=== PATIENT | female | born 1950 | race Caucasian/White ===

== ENCOUNTER → 2016-08-07 | Outpatient (CLI) | payer OTHER, MEDICARE ==
[~2016-08-07] MED LIST: ASCA500 PO; CALCTAB5 PO; CHOL100010 PO; LEVO50TA PO; MULT-506 PO; OMEG10007 PO
--- NOTE | 2016-08-08 13:25 | MAMMOGRAPHY REPORT ---
BILATERAL DIGITAL SCREENING MAMMOGRAM TOMOSYNTHESIS WITH CAD: 08/07/2016 CLINICAL HISTORY: Routine screening examination. TECHNIQUE: Breast tomosynthesis in addition to standard 2D mammography was performed. Current study was also evaluated with a Computer Aided Detection (CAD) system. COMPARISON: Comparison is made to exams dated: 08/02/2015 mammogram, 07/30/2014 mammogram, 07/11/2012 mammogram, 07/29/2013 mammogram, 06/23/2011 localization - [facility], and 9. BREAST COMPOSITION: The tissue of both breasts is heterogeneously dense, which may obscure small ma sses. FINDINGS: There is architectural distortion and associated surgical clips in the lower inner middle one third of the right breast, at the site of benign surgical excisional biopsy. There are stable grouped faint punctate microcalcifications in the approximate 3:00 right breast. Other benign coars e calcifications bilaterally. No new suspicious mass, architectural distortion or cluster of microc alcifications is seen. IMPRESSION: ACR BI-RADS CATEGORY 1: NEGATIVE There is no mammographic evidence of malignancy. A 1 year screening mammogram is recommended. The p atient will receive written notification of the results. Approximately 10% of breast cancers are not detected with mammography. A negative mammographic repor t should not delay biopsy if a clinically suggestive mass is present. Gail Baker M.D. ay/:08/07/2016 16:47:33 Physician Relations Manager: Felicity SHUKLA)([place]), [facility] letter sent: Normal 1/2 BI-RADS Code: ACR BI-RADS Category 1: Negative
== END | disposition home or self-care (01) ==
LOC: C.MAMM 14:47
PROVIDERS: ATTEND Obstetrics & Gynecology
DX: Z12.31 Encounter for screening mammogram for malignant neoplasm of breast (principal)

== ENCOUNTER → 2017-01-04 | Outpatient (CLI) | payer OTHER, MEDICARE | END | disposition home or self-care (01) | LOC: C.PAPS 12:28 | PROVIDERS: ATTEND Obstetrics & Gynecology | DX: Z12.4 Encounter for screening for malignant neoplasm of cervix (principal); Z11.51 Encounter for screening for human papillomavirus (HPV) ==

== ENCOUNTER → 2017-01-24 | Outpatient (CLI) | payer OTHER, MEDICARE | END | disposition home or self-care (01) | LOC: C.PATHSPEC 15:27 | PROVIDERS: ATTEND Obstetrics & Gynecology | DX: D06.9 Carcinoma in situ of cervix, unspecified (principal) ==

== ENCOUNTER → 2017-02-21 | Outpatient (CLI) | payer OTHER, MEDICARE ==
[2017-02-21 17:44] LABS: BASO % 0.1 %; BASO ABS # 0.01 K/uL (0-0.2); COMPLETE YES; EOS % 0.7 %; HEMATOCRIT 41.8 % (37-47); IG% 0.2 %; LYMPH % 27.5 %; LYMPH ABS # 2.96 K/uL (1.2-3.4); MEAN CELL VOLUME 87.3 fL (80-100); MEAN CORPUSCULAR HEMOGLOBIN 28.6 pg (25-34); MEAN CORPUSCULAR HGB CONC 32.8 g/dl (32-36); MEAN PLATELET VOLUME 10.1 fL (7.4-10.4); MONO % 7.3 %; NEUT % 64.2 %; PLATELET COUNT 313 K/uL (130-400); RED BLOOD COUNT 4.79 M/uL (4.2-5.4); WHITE BLOOD COUNT 10.78 K/uL (4.8-10.8)
== END | disposition home or self-care (01) ==
LOC: C.LAB1850 16:16
PROVIDERS: ATTEND Obstetrics & Gynecology
DX: Z01.818 Encounter for other preprocedural examination (principal)

== ENCOUNTER → 2017-03-22 | Day surgery (SDC) | payer OTHER, MEDICARE ==
[2017-02-20 12:34] VITALS: Ht 165.1 cm; Wt 79.5 kg
--- NOTE | 2017-02-23 15:35 | HISTORY & PHYSICAL EXAMINATION ---
DATE OF ADMISSION: 03/22/2017 ADMIT DIAGNOSES: 1. JUANITO 3. 2. Endometrial mass. HISTORY OF PRESENT ILLNESS: The patient is a 67-year-old postmenopausal female 3, para 3 who presented to me for her annual exam in December 2016. She was doing well. She was not having any bleeding. She had prolapse for which I fitted her with a pessary; however on bimanual exam there was nodularity in the left cul-de-sac which I suspected was stool but was not confirmed on rectovaginal exam. Given this, an ultrasound was performed. This revealed a normal size and shaped uterus. The endometrium was 5.4 mm and the microcystic area was seen. There was a small simple exophytic cyst in the right adnexa measuring 1.6 cm and 3 small simple cystic areas in the left adnexa, all less than 1.8 cm. Given this finding, I recommended that she have saline infusion sonography. This was performed revealing a solid ovoid echogenic mass in the posterior wall with a vascular stalk. I therefore recommended D&C hysteroscopy for this. In the interim the patient had her Pap smear which revealed a high grade lesion. She had previously had an ASCUS Pap in July 2016 as well as November 2015. HPV in 2013 was negative, October 2015 was positive. She underwent colposcopy in December 2015 revealing a low grade lesion at 5 o'clock and negative ECC. We decided to be conservative, but with his high grade Pap she went back to colposcopy, had 4 quadrant biopsies revealing high grade lesion at 2 o'clock as well as 7 o'clock and 11 o'clock. ECC was negative, so therefore we are proceeding with a top hat LEEP concurrently. We will follow up her ovaries in 3-4 months. 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 She does have a slight prolonged history of ASCUS Paps, was negative for HPV in 2013 and positive in 2015. ALLERGIES: PENICILLIN, BEE STINGS AND DUST. MEDICATIONS: Caltrate, levothyroxine, omega 3, vitamin C, vitamin D. PAST MEDICAL HISTORY: Include anxiety, cystocele, dyslipidemia, Judson's thyroiditis, hypothyroidism from Judson's thyroiditis, osteoporosis. PAST SURGICAL HISTORY: Includes breast biopsy, breast surgery reduction bilaterally, colonoscopy and laser ablation of the cervix. FAMILY HISTORY: Significant for her mother with breast and colon cancer as well as diabetes and hypertension. Father is with history of diabetes and heart disease, also family history of hypertension. SOCIAL HISTORY: The patient is . She is not currently sexually active. She denies tobacco or significant alcohol use. 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 PHYSICAL EXAMINATION: GENERAL: This is a well-developed, well-nourished white female in no acute distress. VITAL SIGNS: Her blood pressure is 136/92, height 5 feet 5 inches, weight 180.9 pounds. NECK: Supple without thyromegaly or lymphadenopathy. CHEST: Clear to auscultation bilaterally. CARDIOVASCULAR: Regular rate and rhythm without murmurs, gallops or rubs. BACK: Without costovertebral angle tenderness. ABDOMEN: Soft, nontender, nondistended, without appreciable masses. PELVIC EXAMINATION: There is normal external female genitalia. Normal Bartholin, urethra and Cutler glands. Vagina is atrophic, dry. There is a cystocele, which is a grade 4/4, uterine prolapse grade 4/4, but no abnormalities. The cervix prolapses to and slightly through the introitus. There is no significant discharge, no active vaginal bleeding. The cervix appears normal. On bimanual exam, the uterus is midline, mobile, smooth, small and nontender. There are no appreciable adnexal masses or tenderness. Bladder and urethra are nontender. ASSESSMENT: Jaz is a 67-year-old postmenopausal female with 2 unrelated issues. The first is a high grade Pap with JUANITO 3 on biopsies for which will proceed with a top hat LEEP. This second is an asymptomatic endometrial mass for which will proceed with D&C, hysteroscopy and polypectomy. The risks of the procedure were discussed with the patient including the risk of anesthesia, bleeding requiring transfusion, infection, poor wound healing, damage to surrounding structures including bowel, bladder, vessels, nerves and ureters with need for further surgery, hospitalization or intervention. We discussed the possibility of uterine perforation occurring in about 1% of procedures and that laparoscopy might be needed should we go with that. We discussed Pap would be back in 3-5 days and further intervention might be needed depending on Pap. We also discussed the risk of any surgery including heart attack, blood clot, stroke or . The patient understands the risks of the procedure. CONSENT: Consent was reviewed and signed and surgery is planned for 03/22/2017.
[~2017-03-22] VITALS: Ht 165.1 cm; Wt 79.5 kg
[~2017-03-22] MED LIST changes: +ATROPINE SULFATE 0.1 MG/ML 5ML SYR IV PRN; +DEXAMETHASONE SOD INJ 4 MG/ML VIAL ONE; +EpHEDrine SULFATE INJ 50 MG/ML AMP IV PRN; +FENTANYL CITRATE INJ 50 MCG/1 ML 2 ML VIAL IV PRN; +FENTANYL CITRATE INJ 50 MCG/1 ML 2 ML VIAL ONE; +FERRIC SUBSULFATE 8 GM VIAL ONE; +IBUPROFEN 600 MG TAB PO PRN; +IODINE SOLN STRONG 14 ML ONE; +KETOROLAC TROMETHAMINE 30 MG/ML VIAL IV. PRN; +LACTATED RINGER'S 1000ML 1,000 ML IV SCH; +LIDO 2%/EPINEPHRINE 1:100000 20 ML VIAL INFIL ONE; +LIDOCAINE HCL 2% 2 ML VIAL (20MG/ML) ONE; +MIDAZOLAM HCL 1 MG/ML 2ML VIAL ONE; +MoRPHine SULFATE 2 MG/ML CARP IV PRN; +MoRPHine SULFATE 4 MG/ML 1 ML CARP\\VIAL IV PRN; +ONDANSETRON INJ 2 MG/ML 2 ML VIAL IV PRN; +ONDANSETRON INJ 2 MG/ML 2 ML VIAL ONE; +OXYCODONE/ACETAMINOPHEN 5-325 TAB PO PRN; +PROPOFOL IV EMULSION 10 MG/ML 20 ML VIAL IV ONE; +SODIUM CHLORIDE 0.9% 1000ML 1,000 ML IV SCH
--- NOTE | 2017-03-22 11:35 | History & Physical Bridge - SC ---
H&P Re-Evaluation Bridge Note: I have examined the patient, reviewed the History & Physical and in the interval since the performance of the History & Physical I have noted the following changes of clinical significance: No changes noted
--- NOTE | 2017-03-22 13:06 | Discharge Instructions ---
Discharge Instructions Date of Service Mar 22, 2017. Visit Reason for Visit: High Grade Squamous Intraepithelial Lesion, Thick Discharge Discharge Diagnosis / Problem: 1. D&C/HSC/removal of polyp 2. leep Discharge Goals Goal(s): Specific goals Activity Recommendations Activity Limitations: per Instructions/Follow-up section Anesthesia . Post Anesthesia Instructions: If you have had General Anesthesia or IV Sedation: * Do not drive today. * Resume driving when surgeon permits. * Do not make important decisions or sign legal documents today. * Call surgeon for: 1. Temperature elevations greater than 101 degrees F. 2. Uncontrollable pain. 3. Excessive bleeding. 4. Persistent nausea and vomiting. 5. Medication intolerance (nausea, vomiting or rash). * For nausea and vomiting use only clear liquids such as: tea, soda, bouillon until nausea subsides, then gradually increase diet as tolerated. * If you have any concerns or questions, call your surgeon's office. If physician is unavailable and it is an emergency, call 911 or go to the nearest emergency room. . Instructions / Follow-Up Instructions / Follow-Up ACTIVITY RECOMMENDATIONS: * Avoid tampons, douching, hot tubs, pools, and intercourse until bleeding has stopped/2 weeks. * May shower as usual. * No strenuous activity for 24-48 hours. After 24-48 hours, you may do anything you feel like doing (driving and sports are okay). * Do not place pessary until cleared by physician. SPECIAL CARE INSTRUCTIONS: Special Diet: * Mild nausea may occur in the immediate post-operative period. * Take clear liquids such as tea, cola or bouillon until all nausea has subsided; you may then resume your normal diet. Special Care: * Light bleeding and vaginal spotting can last from a few days to 3-4 weeks. Call your doctor if bleeding becomes heavier than the heaviest part of your period. * Check your temperature twice a day for one week. If it goes above 100.4 degrees Fahrenheit (38.0 Celsius), notify your doctor. * Call your doctor's office for an appointment for 2 weeks after your surgery. FOLLOW-UP VISIT: Call your doctor's office for an appointment for 2 weeks after your surgery. Diet Recommendations Recommended Home Diet: no limitations, resume previous diet Procedures Procedures Performed: Dilatation And Curettage, Hysteroscopy, Polypectomy With Myosure, Loop Electorsurgical Excision Procedure Pending Studies Studies pending at discharge: no Medical Emergencies . Who to Call and When: Medical Emergencies: If at any time you feel your situation is an emergency, please call 911 immediately. . 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 . "Provider Documentation" section prepared by Letty Pandya. .
--- NOTE | 2017-03-22 13:09 | [facility] Post Operative Brief Note ---
Immediate Operative Summary Operative Date Mar 22, 2017. Pre-Operative Diagnosis High Grade Squamous Intraepithelial Lesion thickened endometrium and endometrial mass Post-Operative Diagnosis Same Procedure(s) Performed Dilatation And Curettage, Hysteroscopy, Polypectomy With Myosure, Loop Electorsurgical Excision Procedure Surgeon Dr. Pandya Intermediate Teacher Surgeon(s) None Estimated Blood Loss 5 ml Findings nl appearing uterine cavity with small polyp on post wall, thin em, nl appearing cx with lugols. Fluids (cc crystalloids) 850cc/ 20 cc hsc deficit Specimens A.) Endometrial Curettings B.) Endometrial Mass C.) Ectocervix D.) Endocervix E.) Endocervical Curettings F.) Anterior Lip Erosive Area Drains none Anesthesia lma Complication(s) None Disposition Recovery Room / PACU
[2017-03-22 14:12] VITALS: TEMP 36.6
--- NOTE | 2017-03-22 14:18 | OPERATIVE REPORT ---
DATE OF OPERATION: 03/22/2017 PREOPERATIVE DIAGNOSES: 1. Thickened endometrial mass. 2. High grade squamous epithelial lesion. DISCHARGE DIAGNOSIS: Same. PROCEDURES: 1. D&C, hysteroscopy with removal of endometrial mass fusion MyoSure. 2. Top hat LEEP. SURGEON: Dr. Pandya. ANESTHESIA: General per laryngeal mask. ESTIMATED BLOOD LOSS: 5 mL. FLUIDS: 850 mL of IV fluids with a 20 mL hysteroscopic deficit. INDICATIONS: Jaz is a 67-year-old postmenopausal female with a long history of minimally abnormal Pap smears, recently had a high grade Pap smear with JUANITO 2-3 on biopsy. Additionally, she had an ultrasound showing a thickened endometrium and an SIS for questionable mass. FINDINGS: Uterus sounded to 6 cm. An endometrial mass was noted on the posterior wall of the cervix. The endometrium was otherwise thin. The cervical os appeared normal and the external cervix appeared normal as well. SPECIMENS: 1. Endometrial curettings. 2. Endometrial mass. 3. Ectocervix. 4. Endocervix. 5. Endocervical curetting. 6. Erosive Nika anterior lip. COMPLICATIONS: None. DRAINS: None. DISPOSITION: To recovery room in stable condition. PROCEDURE: The patient was taken to the operating room where she was identified verbally and by bracelet. She was placed in dorsal supine position where general anesthesia was induced without difficulty. She was then placed in dorsal lithotomy position in candy-cane stirrups and prepped and draped in normal sterile fashion. Timeout was held identifying correct patient, procedure and positioning. The bladder was drained of urine and exam under anesthesia revealed a large cystocele and uterine prolapse to the introitus. The uterus was small retroverted and mobile. There were no appreciable adnexal masses, although there was some nodularity in the posterior cul-de-sac, most likely consistent with stool. A weighted speculum was placed in the posterior vagina. The anterior lip of the cervix was grasped with a single tooth tenaculum. Uterus sounded to 6-7 cm, dilated to a #23 Hegar dilator introducing the MyoSure hysteroscope revealed the above-noted polyp which was then removed using the MyoSure. Curettage was then performed in 365 degrees and that part of the procedure was terminated. Attention was then turned to the LEEP procedure. A coated speculum was placed in the vagina. Lugol solution was placed on the cervix. An ectocervical specimen was obtained, then an endocervical specimen, then an ECC above the endocervical specimen and there was an erosive area on the anterior lip of the cervix which was most likely secondary to manipulation of the cervix, but this area was removed as well. The base of the leep was treated with cautery and Astrogyn for hemostasis. All sponge, lap and needle counts were correct x2. The patient tolerated the procedure well and was taken to recovery room in stable condition. I attest to the content of the Intraoperative Record and any orders documented therein. Any exceptions are noted below. MTDD
[2017-03-22 14:27] VITALS: BP 145/84; PULSE 60; O2SAT 99
--- NOTE | 2017-03-22 14:30 | Anesthesia Progress Nt - [facility] ---
Anesthesia Post Op Note Date & Time Mar 22, 2017 at 14:30 Vital Signs Pain Intensity: 1 Vital Signs Past 12 Hours Date Time Temp Pulse Resp B/P (MAP) Pulse Ox O2 Delivery O2 Flow Rate FiO2 03/22/17 14:27 60 16 145/84 (104) 99 Room Air 03/22/17 14:12 36.6 62 16 148/74 (98) 99 Room Air 03/22/17 13:47 74 14 03/22/17 13:47 76 14 135/56 99 03/22/17 13:46 36.8 76 16 135/56 96 Room Air 03/22/17 13:42 75 19 97 03/22/17 13:42 75 19 03/22/17 13:41 128/72 03/22/17 13:40 73 15 99 03/22/17 13:40 72 15 03/22/17 13:36 146/63 03/22/17 13:35 62 17 100 03/22/17 13:35 62 17 03/22/17 13:32 140/62 03/22/17 13:30 68 17 100 03/22/17 13:30 65 17 03/22/17 13:26 141/77 03/22/17 13:25 70 19 03/22/17 13:25 72 19 100 03/22/17 13:21 158/79 03/22/17 13:20 86 25 100 03/22/17 13:20 86 25 03/22/17 13:16 150/70 03/22/17 13:15 82 12 98 03/22/17 13:15 85 12 03/22/17 13:12 147/71 03/22/17 13:10 36.6 77 16 147/71 100 Diffusion Mask 6 03/22/17 10:40 36.8 89 18 142/86 (104) 99 Room Air Notes Mental Status: alert / awake / arousable, participated in evaluation Pt Amnestic to Procedure: Yes Nausea / Vomiting: adequately controlled Pain: adequately controlled Airway Patency, RR, SpO2: stable & adequate BP & HR: stable & adequate Hydration State: stable & adequate Anesthetic Complications: no major complications apparent
== END | disposition home or self-care (01) ==
LOC: X.SURG 10:24
PROVIDERS: ATTEND Obstetrics & Gynecology
DX: D06.0 Carcinoma in situ of endocervix (principal); D06.1 Carcinoma in situ of exocervix; R19.09 Other intra-abdominal and pelvic swelling, mass and lump; N86 Erosion and ectropion of cervix uteri; E06.3 Autoimmune thyroiditis; E03.9 Hypothyroidism, unspecified; E78.5 Hyperlipidemia, unspecified; Z80.3 Family history of malignant neoplasm of breast; Z80.0 Family history of malignant neoplasm of digestive organs; Z82.49 Family history of ischemic heart disease and other diseases of the circulatory system; Z83.3 Family history of diabetes mellitus; Z86.19 Personal history of other infectious and parasitic diseases

== ENCOUNTER → 2017-04-19 | Outpatient (CLI) | payer OTHER, MEDICARE ==
[~2017-04-19] MED LIST changes: -ATROPINE SULFATE 0.1 MG/ML 5ML SYR IV PRN; -DEXAMETHASONE SOD INJ 4 MG/ML VIAL ONE; -EpHEDrine SULFATE INJ 50 MG/ML AMP IV PRN; -FENTANYL CITRATE INJ 50 MCG/1 ML 2 ML VIAL IV PRN; -FENTANYL CITRATE INJ 50 MCG/1 ML 2 ML VIAL ONE; -FERRIC SUBSULFATE 8 GM VIAL ONE; -IBUPROFEN 600 MG TAB PO PRN; -IODINE SOLN STRONG 14 ML ONE; -KETOROLAC TROMETHAMINE 30 MG/ML VIAL IV. PRN; -LACTATED RINGER'S 1000ML 1,000 ML IV SCH; -LIDO 2%/EPINEPHRINE 1:100000 20 ML VIAL INFIL ONE; -LIDOCAINE HCL 2% 2 ML VIAL (20MG/ML) ONE; -MIDAZOLAM HCL 1 MG/ML 2ML VIAL ONE; -MoRPHine SULFATE 2 MG/ML CARP IV PRN; -MoRPHine SULFATE 4 MG/ML 1 ML CARP\\VIAL IV PRN; -ONDANSETRON INJ 2 MG/ML 2 ML VIAL IV PRN; -ONDANSETRON INJ 2 MG/ML 2 ML VIAL ONE; -OXYCODONE/ACETAMINOPHEN 5-325 TAB PO PRN; -PROPOFOL IV EMULSION 10 MG/ML 20 ML VIAL IV ONE; -SODIUM CHLORIDE 0.9% 1000ML 1,000 ML IV SCH
== END | disposition home or self-care (01) ==
LOC: C.LAB1850 16:14
PROVIDERS: ATTEND Obstetrics & Gynecology
DX: N83.209 Unspecified ovarian cyst, unspecified side (principal)

== ENCOUNTER 2017-08-08 12:38 | Emergency (ER) | payer OTHER, MEDICARE ==
[~2017-08-08] VITALS: Ht 163.8 cm; Wt 81.9 kg
[2017-08-08 12:43] VITALS: TEMP 36.3; Ht 163.8 cm; Wt 81.9 kg
--- NOTE | 2017-08-08 13:31 | DIAGNOSTIC IMAGING REPORT ---
L ELBOW MIN 3 VIEWS ROUTINE CLINICAL HISTORY: R/O fx left elbow. Pain following fall. Trauma. Pain. COMPARISON: None. DISCUSSION: A small bony avulsion from the proximal ulna posteriorly. All remaining osseous structures are unremarkable. No evidence of dislocation. There is no evidence for soft tissue swelling. IMPRESSION: Several small linear ossific avulsions from the proximal ulna posteriorly The above report was generated using voice recognition software. It may contain grammatical, syntax or spelling errors. Electronically signed by: Robbin Yousif M.D. 08/08/2017 1:30 PM Dictated Date/Time: 08/08/2017 1:28 PM
--- NOTE | 2017-08-08 13:37 | EMERGENCY ROOM VISIT NOTE ---
History First contact with patient: 13:07 Chief Complaint: ELBOW PAIN/INJURY Stated Complaint: FELL, HURT ELBOW History of Present Illness The patient is a 67 year old female who presents to the Emergency Room via private vehicle with complaints of "fell, hurt elbow". The patient states that she was in the parking lot leaving her place of work, when she slipped on the ice, falling backwards landing on her left elbow. She now notes pain directly overlying the olecranon process, with some swelling and redness. She rates the overall pain in this region as an 8/10. She notes minimal numbness/tingling in sensation in this region. She denies any other areas of pain. Review of Systems A complete 6-point Review of Systems was discussed with the patient, with pertinent positives and negatives listed in the History of Present Illness. All remaining Review of Systems questions can be considered negative unless otherwise specified. Past Medical/Surgical History Medical Problems: (1) Hypothyroidism Nos (2) Osteoporosis Nos (3) Vitamin D Deficiency Nos Surgical Problems: (1) Status post bilateral breast reduction Family History Non contributory Social History Smoking Status: Never Smoker Patient is employed and lives locally. Current/Historical Medications Scheduled Levothyroxine Sodium (Synthroid), 50 MCG PO QAM Scheduled PRN Hydrocodone/Acetaminophen 5MG/325MG (Moore 5MG/325MG), 1-2 TABLET PO Q6 PRN for Pain Physical Exam Vital Signs Date Time Temp Pulse Resp B/P (MAP) Pulse Ox O2 Delivery O2 Flow Rate FiO2 08/08/17 14:07 97 20 147/98 98 08/08/17 12:43 36.3 88 18 149/85 97 Room Air Physical Exam VITAL SIGNS - Vital signs and nursing notes were reviewed. Stable. GENERAL -67-year-old female appearing her stated age who is in no acute distress. Communicates well with provider and answers questions appropriately. SKIN - Without rashes. There is mild edema, and erythema overlying the left olecranon process region. The integument and overlying structures are intact. EXTREMITIES - there is tenderness overlying the patient's left olecranon process region. There is no proximal shoulder, humerus or forearm/wrist tenderness. Full range of motion of the hand noted. There is decreased range of motion of the left elbow secondary to pain. +3/5 radial, posterior tibial, and dorsalis pedis pulses palpated throughout. No evidence of additional injury other than that overlying the left olecranon. She is neurovascularly intact in left upper extremity. Medical Decision & Procedures ER Provider Diagnostic Interpretation: L ELBOW MIN 3 VIEWS ROUTINE CLINICAL HISTORY: R/O fx left elbow. Pain following fall. Trauma. Pain. COMPARISON: None. DISCUSSION: A small bony avulsion from the proximal ulna posteriorly. All remaining osseous structures are unremarkable. No evidence of dislocation. There is no evidence for soft tissue swelling. IMPRESSION: Several small linear ossific avulsions from the proximal ulna posteriorly The above report was generated using voice recognition software. It may contain grammatical, syntax or spelling errors. Electronically signed by: Robbin Yousif M.D. 08/08/2017 1:30 PM Dictated Date/Time: 08/08/2017 1:28 PM Medical Decision Patient was seen and evaluated as above. She presents to us today status post fall with left elbow pain, specifically overlying the left olecranon process. X -rays were obtained with results as above. There is a small avulsion injury of this region. Benefit versus risk of utilizing posterior long-arm Ortho-Glass versus arm sling vas discussed and the decision was made to utilize an arm sling. Her pain is well controlled. She declines pain medication here. She' ll be given a short prescription for Moore. No red flags the [employer] drug monitoring system. Her medication list was reviewed. She is hypertensive I believe secondary to situation. Recommend she follow up with orthopedics, but also contact her place of work to identify if this is a work-related injury. She verbalized understanding. She was given an arm sling. She was educated upon management, educated upon worrisome symptoms in which to return, had questions answered prior to discharge, and was discharged home in good condition. In the evaluation and treatment of this patient, the following differential diagnoses were considered: Forearm Contusion, Radial Head Fracture, Radial Styloid Process Fracture, Ulnar Styloid Process Fracture, Radius Fracture, Ulnar Fracture, Tennis Elbow, Golfer's Elbow, or Elbow Fracture. Impression Primary Impression: Closed olecranon fracture Departure Information Dispostion Home / Self-Care Condition GOOD Prescriptions Hydrocodone/Acetaminophen 5MG/325MG (Moore 5MG/325MG) Tab 1-2 TABLET PO Q6 Y for Pain, #15 TAB For Initial Treatment Prov: Frank Cobb PA-C 08/08/17 Referrals No Doctor, Assigned (PCP) Jeremi Vences MD Patient Instructions My [facility] Additional Instructions You have been treated in the Emergency Department for Elbow Pain. There is a small fracture/broken bone. You have been prescribed Moore to be used for pain control. This is a narcotic medication. You cannot drive or consume alcohol while on this medicine. This medicine should only be used for pain that cannot be controlled with over-the- counter pain medicines. For pain control, you can use the following [id number] medicines: - Regular strength (325mg/tab) Tylenol (acetaminophen) 2 tabs every 4-6 hours as needed. Do not exceed 12 tablets in a 24 hour period. Avoid taking more than 3 grams (3000 mg) of Tylenol per day. This includes any other sources of acetaminophen you may take on a regular basis. - Regular strength (200 mg/tab) Advil (ibuprofen) 1-2 tabs every 4-6 hours as needed. Do not exceed a dose of 3200 mg per day. If this is a recent injury (<24 hrs), ice can be applied to the area of pain for the first 3 days to help decrease pain and inflammation. You have been provided the number for an Orthopaedic Surgeon. You should call this number as soon as possible to establish a follow-up visit from today's Emergency Department visit. Keep the sling/splint in place until evaluated by Orthopedics. Return to the Emergency Department if your current symptoms worsen despite treatment course outlined above, or if you develop any of the following symptoms : intractable pain despite aforementioned treatment course or new onset of numbness or tingling of the arm.
[2017-08-08] MEDS ORDERED: HYDR-5688 PO (13:44)
[2017-08-08 14:07] VITALS: BP 147/98; PULSE 97; O2SAT 98
== END 2017-08-08 14:09 | disposition home or self-care (01) ==
LOC: C.EDB 12:39 → C.EDD 14:09
DX: S52.022A Displaced fracture of olecranon process without intraarticular extension of left ulna, initial encounter for closed fracture (principal); W00.0XXA Fall on same level due to ice and snow, initial encounter; Y92.481 Parking lot as the place of occurrence of the external cause; E03.9 Hypothyroidism, unspecified; M81.0 Age-related osteoporosis without current pathological fracture; Z79.899 Other long term (current) drug therapy; R03.0 Elevated blood-pressure reading, without diagnosis of hypertension

== ENCOUNTER → 2017-10-05 | Outpatient (CLI) | payer OTHER, MEDICARE ==
[~2017-10-05] MED LIST changes: -ASCA500 PO; -CALCTAB5 PO; -CHOL100010 PO; +HYDR-5688 PO; -MULT-506 PO; -OMEG10007 PO
--- NOTE | 2017-10-22 10:39 | CODING QUERY MEDICAL NECESSITY ---
CQSUPPORTING DIAGNOSIS NEEDED A supporting diagnosis is required for the test/procedure performed on this patient in order for us to be reimbursed by the patient's insurance. Please provide a supporting diagnosis for the following test/procedure listed below next to the test name along with your signature. *If there is no additional diagnosis for this patient that would support the following test/procedure please document that below next to the test/procedure. Test(s)/Procedure(s) that require a supporting diagnosis: DOS 10/05/17 TUMOR ANTIGEN TEST Provider Signature: Date: Thank you Noemy Dick [employer] Once completed, please kindly fax back to [phone] For questions please call [phone]
== END | disposition home or self-care (01) ==
LOC: C.PAPS 15:57
PROVIDERS: ATTEND Obstetrics & Gynecology
DX: D06.9 Carcinoma in situ of cervix, unspecified (principal); R87.610 Atypical squamous cells of undetermined significance on cytologic smear of cervix (ASC-US); N83.209 Unspecified ovarian cyst, unspecified side

== ENCOUNTER → 2017-10-05 | Outpatient (CLI) | payer OTHER, MEDICARE | END | disposition home or self-care (01) | LOC: C.LAB1850 14:42 | PROVIDERS: ATTEND Obstetrics & Gynecology | DX: N83.209 Unspecified ovarian cyst, unspecified side (principal) ==

== ENCOUNTER 2019-11-29 23:09 | Inpatient (IN) ==
[2019-11-29] MEDS ORDERED: ONDANSETRON INJ 2 MG/ML 2 ML VIAL IV STA (23:22)
[2019-11-29] MEDS ORDERED: HYDROmorphone INJ 0.5 MG/0.5 ML SYR IV STA (23:22)
[2019-11-29] MEDS ORDERED: SODIUM CHLORIDE 0.9% 1000ML 1,000 ML IV SCH (23:30)
[2019-11-30 00:07] LABS: Basophils # (auto) 0.01 K/uL (0-0.2); Basophils % (auto) 0.1 %; Eosinophils # (auto) 0.03 K/uL (0-0.5); Eosinophils % (auto) 0.2 %; Hematocrit (blood only) 43.8 % (37-47); Hemoglobin 14.8 g/dL (12.0-16.0); Immature Granulocytes # (auto) 0.06 K/uL (0.00-0.02); Immature Granulocytes % (auto) 0.4 %; Lymphocytes # (auto) 3.47 K/uL (1.2-3.4); Lymphocytes % (auto) 24.6 %; Mean Corpuscular Hgb Conc 33.8 g/dL (32-36); Mean Corpuscular Volume 85.7 fL (80-100); Mean Platelet Volume 9.9 fL (7.4-10.4); Monocytes # (auto) 0.96 K/uL (0.11-0.59); Monocytes % (auto) 6.8 %; Neutrophils # (auto) 9.56 K/uL (1.4-6.5); Neutrophils % (auto) 67.9 %; Platelet Count 272 K/uL (130-400); RDW Coefficient of Variation 12.4 % (11.5-14.5); RDW Standard Deviation 39.2 fL (36.4-46.3); Red Blood Count 5.11 M/uL (4.2-5.4); White Blood Count 14.09 K/uL (4.8-10.8)
[2019-11-30 00:40] LABS: Albumin Level 3.6 gm/dl (3.4-5.0); Calcium 9.2 mg/dl (8.5-10.1); Creatinine Clr Calc Pharmacy 67.2 ml/min; Est GFR (African American) 83.4; Est GFR (Non-African American) 71.9; Potassium 3.6 mmol/L (3.5-5.1)
[2019-11-30 00:43] LABS: Albumin Globulin Ratio 0.9 (0.9-2); Bilirubin,Total 0.2 mg/dl (0.2-1); Globulin 4.2 gm/dl (2.5-4.0); Total Protein 7.8 gm/dl (6.4-8.2)
[2019-11-30] MEDS ORDERED: HYDROmorphone INJ 0.5 MG/0.5 ML SYR IV STA (01:18)
--- NOTE | 2019-11-30 01:58 | Emergency Department Note ---
History of Present Illness General Chief complaint: Ankle Pain Stated complaint: ankle pain Time Seen by Provider: 11/29/19 23:13 Source: patient, EMS and RN notes reviewed Mode of arrival: EMS Limitations: no limitations History of Present Illness Provider complaint: L lower leg pain Onset (ago): hour(s) less than 1 Maximum Pain Intensity: 7 This patient is a 69-year-old female who presents to the emergency department with complaints of left lower extremity pain. Patient states she was in her backyard walking in the dark and was on a slight gradient. Patient states she is not quite sure what happened but she ended up twisting the left leg and fell, sitting on top of the ankle. Patient stated she felt something pop and did not attempt to get up. She did call her son and 911. Upon EMS arrival, she states she felt something move in her leg when she was loaded onto the stretcher. Patient denies any other injuries, she denies loss of consciousness or neck pain. She states she does not take any blood thinners. Home Medications Home Medications Medication Instructions Recorded Confirmed Type ascorbic acid (vitamin C) [Vitamin 2,000 g PO DAILY 01/15/19 11/29/19 History C] calcium carbonate [Calcium 600] 600 mg PO DAILY 01/15/19 11/29/19 History cholecalciferol (vitamin D3) 1,000 unit PO QAM 01/15/19 11/29/19 History [Vitamin D3] melatonin 5 mg PO HS PRN 01/15/19 11/29/19 History multivitamin 1 tab PO QAM 01/15/19 11/29/19 History levothyroxine 50 mcg tablet 50 mcg PO QAM #90 tab 05/27/19 11/29/19 Rx Allergies Allergy/AdvReac Type Severity Reaction Status Date / Time bee venom protein (honey bee) Allergy Intermediate SWELLING Verified 11/29/19 23:17 Penicillins Allergy Unknown UNKNOWN - Verified 11/29/19 23:17 TOLD TO NOT HAVE A CHILD house dust AdvReac Congested Verified 11/29/19 23:17 Past Med/Surg History Medical History Bilateral ovarian cysts (Resolved) Dyslipidemia (Chronic) Hepatitis C infection 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/45 Hypothyroidism (Chronic) Impaired fasting glucose (Chronic) Osteoporosis (Chronic) 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) Severe cervical dysplasia (Chronic) Vitamin D deficiency (Chronic) Surgical History History of bilateral breast reduction surgery History of breast biopsy History of colonoscopy History of colposcopy History of D&C History of loop electrical excision procedure (LEEP) S/P bilateral salpingo-oophorectomy laparoscopic Status post hysteroscopic polypectomy Family History Mother Family hx of colon cancer Breast cancer Colorectal cancer Father Family history of diabetes mellitus Heart disease Grandmother (Maternal) Hypertension Other Cancer Social History Preferred Language: German Communication Ability: Effective Reimbursement Counselor Required: No Beliefs That Will Affect Care: None Current Living Situation: Parent Current Living Situation Comment: elderly mother lives with pt Other Information That Helps Us Care for You: No Feels Safe at Home: Yes Smoking Status: Never smoker Second Hand Exposure: Yes (as a child) ; Hx Alcohol Use: Yes Alcohol type: wine Hx Substance Use: No Review of Systems See HPI for pertinent positives & negatives. and A total of 10 systems reviewed and were otherwise negative Physical Exam Vital Signs Vital Signs - 24 hr 11/29/19 23:09 11/30/19 00:01 11/30/19 00:28 Temperature 36.4 C L Temperature Source Oral Pulse Rate 83 Pulse Rate [Apical] 88 Respiratory Rate 16 16 Blood Pressure 170/84 H Blood Pressure [Right Arm] 164/77 H Blood Pressure Mean 112 Blood Pressure Mean [Right Arm] 106 Pulse Oximetry 96 96 Oxygen Delivery Method Room Air Room Air Room Air Sepsis Recent Fever Within 48 Hours No Sepsis New/Unexplained Change in Mental Status No Sepsis Action Taken by Nursing No Action Required 11/30/19 01:44 Temperature Temperature Source Pulse Rate Pulse Rate [Apical] 101 H Respiratory Rate 19 Blood Pressure Blood Pressure [Right Arm] 164/80 H Blood Pressure Mean Blood Pressure Mean [Right Arm] 108 Pulse Oximetry 98 Oxygen Delivery Method Room Air Sepsis Recent Fever Within 48 Hours Sepsis New/Unexplained Change in Mental Status Sepsis Action Taken by Nursing Vital signs reviewed. General: Well-appearing 69 yo female in no significant distress. HEENT: Moist mucous membranes, no facial injury noted. Head is atraumatic. Cardiovascular: Regular rate and rhythm, no extra sounds. Pulmonary: Clear to auscultation bilaterally, normal work of breathing. Abdomen: Soft, nontender, nondistended, positive bowel sounds. Musculoskeletal: LLE with mid tib/fib deformity, pulses intact distally. Toes warm with cap refill <2sec. Cervical, thoracic and lumbar spines are nontender. Neurologic: Patient awake alert and oriented x 3 Skin: Warm, dry, no rash Course Administered Medications Hydromorphone HCl (Dilaudid) 0.5 mg IV Q3H PRN PRN Reason: Severe Pain Stop: 12/14/19 02:45 Last Admin: 11/30/19 04:29 Dose: 0.5 mg Documented by: [id number] Potassium Chloride/Sodium Chloride (Normal Saline W/20 Meq Kcl) 20 meq in 1,000 mls @ 100 mls/hr IV .Q10H GURPREET Stop: 12/30/19 02:45 Last Admin: 11/30/19 03:28 Dose: 100 mls/hr Documented by: [id number] Levothyroxine Sodium (Synthroid) 50 mcg PO DAILYBB GURPREET Stop: 12/30/19 06:29 Last Admin: 11/30/19 04:29 Dose: Not Given Documented by: [id number] Discontinued Medications Hydromorphone HCl (Dilaudid) 0.5 mg IV NOW STA Stop: 11/29/19 23:23 Last Admin: 11/29/19 23:49 Dose: 0.5 mg Documented by: [id number] Hydromorphone HCl (Dilaudid) 0.5 mg IV NOW STA Stop: 11/30/19 01:19 Last Admin: 11/30/19 01:45 Dose: 0.5 mg Documented by: [id number] Sodium Chloride (Nss 1000ml) 1,000 mls @ 150 mls/hr IV .Q6H40M GURPREET Stop: 11/30/19 06:09 Last Infusion: 11/30/19 02:30 Dose: 0 mls/hr Documented by: [id number] Admin: 11/29/19 23:49 Dose: 150 mls/hr Documented by: [id number] Ondansetron HCl (Zofran) 4 mg IV NOW STA Stop: 11/29/19 23:23 Last Admin: 11/29/19 23:49 Dose: 4 mg Documented by: [id number] Medical Decision Making Differential Diagnosis DDx: Intracranial injury, cervical spine injury, intrathoracic injury, intra- abdominal injury, musculoskeletal injury. Medical Records Attestation: I reviewed the patient's medical records. Home Medications Current Medication List: was personally reviewed by me Laboratory Data Attestation: I reviewed the patient's lab results. Result diagrams: 11/29/19 23:57 11/29/19 23:57 Lab Results 11/29/19 11/29/19 Range/Units 23:57 23:57 WBC 14.09 H (4.8-10.8) K/uL RBC 5.11 (4.2-5.4) M/uL Hgb 14.8 (12.0-16.0) g/dL Hct 43.8 (37-47) % MCV 85.7 (80-100) fL MCH 29.0 (25-34) pg MCHC 33.8 (32-36) g/dL RDW Std Deviation 39.2 (36.4-46.3) fL RDW Coeff of Lito 12.4 (11.5-14.5) % Plt Count 272 (130-400) K/uL MPV 9.9 (7.4-10.4) fL Immature Gran % (Auto) 0.4 % Neut % (Auto) 67.9 % Lymph % (Auto) 24.6 % Scott % (Auto) 6.8 % Eos % (Auto) 0.2 % Baso % (Auto) 0.1 % Immature Gran # (Auto) 0.06 H (0.00-0.02) K/uL Neut # (Auto) 9.56 H (1.4-6.5) K/uL Lymph # (Auto) 3.47 H (1.2-3.4) K/uL Scott # (Auto) 0.96 H (0.11-0.59) K/uL Eos # (Auto) 0.03 (0-0.5) K/uL Baso # (Auto) 0.01 (0-0.2) K/uL Sodium 137 (136-145) mmol/L Potassium 3.6 (3.5-5.1) mmol/L Chloride 106 (98-107) mmol/L Carbon Dioxide 25 (21-32) mmol/L Anion Gap 6.0 (3-11) BUN 25 H (7-18) mg/dl Creatinine 0.83 (0.6-1.2) mg/dl Est Cr Clr Drug Dosing 67.2 ml/min Est GFR ( Amer) 83.4 Est GFR (Non-Af Amer) 71.9 BUN/Creatinine Ratio 30.0 H (10-20) Glucose 138 H (70-99) mg/dl Calcium 9.2 (8.5-10.1) mg/dl Total Bilirubin 0.2 (0.2-1) mg/dl AST 23 (15-37) U/L ALT 23 (12-78) U/L Alkaline Phosphatase 96 (45-117) U/L Total Protein 7.8 (6.4-8.2) gm/dl Albumin 3.6 (3.4-5.0) gm/dl Globulin 4.2 H (2.5-4.0) gm/dl Albumin/Globulin Ratio 0.9 (0.9-2) Imaging Data Attestation: I personally reviewed and interpreted this imaging study as follow s: My Impression: Left tib-fib x-ray reveals a midshaft comminuted fracture of the tibia extending to the intra-articular surface. Distal fracture of the fibula also comminuted. ECG Data Attestation: I personally reviewed and interpreted this ECG as follows: Indication: + other (preop, fall) Rate (beats per minute): 79 Rhythm: + normal sinus ECG Intervals/blocks: + Normal QT ECG [place]: + Normal ECG ST segments: + Normal ST segments ECG Findings: no PACs and no PVCs Blood Pressure Blood Pressure Findings: Elevated blood pressure Blood Pressure Disposition: Referred to patients primary care provider [facility] Celina An order for cardiac monitoring was placed and the patient is found to be in a normal sinus rhythm at 79 bpm. This patient was evaluated and appeared to be in no significant distress. Physical examination reveals a deformity of instability of the left midshaft tib-fib. There is no evidence of open skin. Patient was hydrated with normal saline solution, given IV Dilaudid and Zofran for her discomfort. X-rays confirm a midshaft tibia fracture with a distal fibular fracture. Case was reviewed with Dr. Andres of orthopedic surgery. He has requested CT imaging and follow-up. He recommended a long-leg splint and crutches to follow-up with Dr. Mancilla, as he is a foot and ankle specialist. Patient lives at home with her 92-year-old mother and feels uncomfortable with the plan for discharge. The splint was applied under my direction after the patient was medicated with a second dose of IV Dilaudid. Case was discussed with Dr. Yeager of the hospitalist service who will evaluate the patient for further management. Patient has expressed an understanding and agrees. Impression & Plan Fracture of tibia and fibula Discharge Plan Visit Data *Final* Discharge Date/Time: 11/30/19 02:17 Chief Complaint: Ankle Pain Stated Complaint: ankle pain ED Provider: Shirley Caal Discharge Problem: Fracture of tibia and fibula Patient Disposition: Admitted As Inpatient Discharge Instructions Interventions: ED Discharge Assessment Last Done: 11/30/19 02:17 Discharge Problem: Fracture of tibia and fibula Qualifiers: Encounter type: initial encounter Fracture type: closed Laterality: left Qualified Code(s): S82.202A - Unspecified fracture of shaft of left tibia, initial encounter for closed fracture
[2019-11-30] MEDS ORDERED: ACETAMINOPHEN 1,000 MG/100 ML VIAL IV PRN (02:46)
[2019-11-30] MEDS ORDERED: ONDANSETRON INJ 2 MG/ML 2 ML VIAL IV PRN (02:46)
[2019-11-30] MEDS: NSS + 20MEQ KCL 20 MEQ/1,000 ML BAG IV SCH ×2 (03:28→13:19)
[2019-11-30] MEDS: LEVOTHYROXINE SODIUM 50 MCG TABLET PO SCH (04:29)
[2019-11-30] MEDS: HYDROmorphone INJ 0.5 MG/0.5 ML SYR IV PRN ×3 (04:29→16:22)
--- NOTE | 2019-11-30 05:11 | History & Physical Report ---
Date of Service November 30, 2019 Assessment & Plan (1) Closed fracture of left tibial plafond with fibula involvement: Patient will be placed in a immobilizing splint by ED staff. Admit to medical surgical floor Famotidine 20 mg IV every 12 hours. Zofran 4 mg IV every 6 hours PRN Acetaminophen 1000 mg IV every 8 hours PRN mild pain or temperature. Dilaudid 0.5 mg IV every 3 hours as needed severe pain NSS + KCl 20 mEq at 100 mils per hour. Activity is nonweightbearing left lower extremity Consult orthopedic surgery Present on Admission?: Yes (2) Hypothyroidism: Continue levothyroxine 50 mcg daily Present on Admission?: Yes (3) Osteoporosis: Continue calcium and vitamin D Present on Admission?: Yes (4) Vitamin D deficiency: Continue vitamin D Present on Admission?: Yes (5) Impaired fasting glucose: Random glucose 138 upon admission, would not pursue routine testing. Present on Admission?: Yes Admission and Anticipated Discharge Date Admission Date: November 30, 2019 Anticipated date of discharge: 12/02/19 History of Present Illness Chief Complaint: Patient presents to the emergency department via EMS with the acute onset of severe left ankle pain while she was out searching for her cat at nighttime Primary Care Provider: Emelia Ferris MD The patient is a 69-year-old female with a past medical history of hypothyroidism, vitamin D deficiency, osteoporosis, impaired fasting glucose, dyslipidemia, HPV infection, uterine prolapse and severe cervical dysplasia. She reports that she was outside searching for her cat, and does not remember the exact sequence, but remembers twisting her ankle and hearing a cracking sound and then the development of severe pain and inability to bear weight. In the emergency department, patient was found to have a distal left tib-fib fracture, and was felt to not be able to return home with a splint, and was referred for admission to the medical service for orthopedic assessment in the a.m.. Allergies Allergy/AdvReac Type Severity Reaction Status Date / Time bee venom protein (honey bee) Allergy Intermediate SWELLING Verified 11/29/19 23:17 Penicillins Allergy Unknown UNKNOWN - Verified 11/29/19 23:17 TOLD TO NOT HAVE A CHILD house dust AdvReac Congested Verified 11/29/19 23:17 Home Medications Home Medications Medication Instructions Recorded Confirmed Type ascorbic acid (vitamin C) [Vitamin 2,000 g PO DAILY 01/15/19 11/29/19 History C] calcium carbonate [Calcium 600] 600 mg PO DAILY 01/15/19 11/29/19 History cholecalciferol (vitamin D3) 1,000 unit PO QAM 01/15/19 11/29/19 History [Vitamin D3] melatonin 5 mg PO HS PRN 01/15/19 11/29/19 History multivitamin 1 tab PO QAM 01/15/19 11/29/19 History levothyroxine 50 mcg tablet 50 mcg PO QAM #90 tab 05/27/19 11/29/19 Rx Past Med/Surg History Medical History Bilateral ovarian cysts (Resolved) Dyslipidemia (Chronic) Hepatitis C infection 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 Hypothyroidism (Chronic) Impaired fasting glucose (Chronic) Osteoporosis (Chronic) 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) Severe cervical dysplasia (Chronic) Vitamin D deficiency (Chronic) Surgical History History of bilateral breast reduction surgery History of breast biopsy History of colonoscopy History of colposcopy History of D&C History of loop electrical excision procedure (LEEP) S/P bilateral salpingo-oophorectomy laparoscopic Status post hysteroscopic polypectomy Family History Mother Family hx of colon cancer Breast cancer Colorectal cancer Father Family history of diabetes mellitus Heart disease Grandmother (Maternal) Hypertension Other Cancer Social History Preferred Language: Hungarian Communication Ability: Effective Crane 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 Cab 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: No Beliefs That Will Affect Care: None Current Living Situation: Parent Current Living Situation Comment: elderly mother lives with pt Other Information That Helps Us Care for You: No Feels Safe at Home: Yes Smoking Status: Never smoker Second Hand Exposure: Yes (as a child) ; Hx Alcohol Use: Yes Alcohol type: wine Hx Substance Use: No Review of Systems Review of Systems: The patient denies chest pain, palpitations, shortness of breath, dyspnea on exertion, cough, sore throat, fevers, chills, sweats, weight change, fatigue, nausea, vomiting, diarrhea , constipation, abdominal pain, pelvic pain, blood in urine or stool, dysuria, urinary frequency or urgency, lightheadedness, dizziness, headache, memory loss, loss of consciousness, rash, abnormal bruising or bleeding, focal or generalized weakness, numbness or tingling in arms or right leg, generalized arthralgias or myalgias, back or neck pain, or night sweats. The review of systems is otherwise negative other than for that already noted above, and at least 10 systems have been reviewed. Physical Exam Physical Exam: The patient is awake, alert and oriented 3, well developed and well nourished, normocephalic, lying in bed and in no acute distress after having received Dilaudid IV. HEENT--PERRL, EOMI, mucous membranes and oropharynx normal. Neck--supple. No JVD. No bruits. Thyroid normal, trachea midline, no adenopathy. Heart--normal S1 and S2. No murmurs, rubs or gallops. Lungs--clear bilaterally, no respiratory distress, no accessory muscle use. Abdomen--normal bowel sounds and soft. Nontender. Nondistended. Extremities--no cyanosis or clubbing. No edema. Dermatologic--normal skin turgor, normal color, no abnormal lymph nodes, no rash. Neurologic--cranial nerves II through XII grossly intact. Rheumatologic--left lower extremity with deformity distally. Psychiatric--normal affect. Results & Data Results & Data ([facility]) Vital Signs (Past 12 Hours) Vital Signs Temp Pulse Pulse Pulse Resp BP BP 11/30/19 02:40 97.5 F L 87 14 151/84 H 11/30/19 02:17 103 H 18 157/87 H 11/30/19 02:15 103 H 18 164/80 H 11/30/19 01:44 101 H 19 164/80 H 11/30/19 00:28 88 16 164/77 H 11/29/19 23:09 97.5 F L 83 16 170/84 H Pulse Ox 11/30/19 02:40 96 11/30/19 02:17 97 11/30/19 02:15 96 11/30/19 01:44 98 11/30/19 00:28 96 11/29/19 23:09 96 Laboratory Results Laboratory Results WBC 14.09 K/uL (4.8-10.8) H 11/29/19 23:57 RBC 5.11 M/uL (4.2-5.4) 11/29/19 23:57 Hgb 14.8 g/dL (12.0-16.0) 11/29/19 23:57 Hct 43.8 % (37-47) 11/29/19 23:57 MCV 85.7 fL (80-100) 11/29/19 23:57 MCH 29.0 pg (25-34) 11/29/19 23:57 MCHC 33.8 g/dL (32-36) 11/29/19 23:57 RDW Std Deviation 39.2 fL (36.4-46.3) 11/29/19 23:57 RDW Coeff of Lito 12.4 % (11.5-14.5) 11/29/19 23:57 Plt Count 272 K/uL (130-400) 11/29/19 23:57 MPV 9.9 fL (7.4-10.4) 11/29/19 23:57 Immature Gran % (Auto) 0.4 % 11/29/19 23:57 Neut % (Auto) 67.9 % 11/29/19 23:57 Lymph % (Auto) 24.6 % 11/29/19 23:57 Fisher % (Auto) 6.8 % 11/29/19 23:57 Eos % (Auto) 0.2 % 11/29/19 23:57 Baso % (Auto) 0.1 % 11/29/19 23:57 Immature Gran # (Auto) 0.06 K/uL (0.00-0.02) H 11/29/19 23:57 Neut # (Auto) 9.56 K/uL (1.4-6.5) H 11/29/19 23:57 Lymph # (Auto) 3.47 K/uL (1.2-3.4) H 11/29/19 23:57 Fisher # (Auto) 0.96 K/uL (0.11-0.59) H 11/29/19 23:57 Eos # (Auto) 0.03 K/uL (0-0.5) 11/29/19 23:57 Baso # (Auto) 0.01 K/uL (0-0.2) 11/29/19 23:57 Sodium 137 mmol/L (136-145) 11/29/19 23:57 Potassium 3.6 mmol/L (3.5-5.1) 11/29/19 23:57 Chloride 106 mmol/L (98-107) 11/29/19 23:57 Carbon Dioxide 25 mmol/L (21-32) 11/29/19 23:57 Anion Gap 6.0 (3-11) 11/29/19 23:57 BUN 25 mg/dl (7-18) H 11/29/19 23:57 Creatinine 0.83 mg/dl (0.6-1.2) 11/29/19 23:57 Est Cr Clr Drug Dosing 67.2 ml/min 11/29/19 23:57 Est GFR ( Amer) 83.4 11/29/19 23:57 Est GFR (Non-Af Amer) 71.9 11/29/19 23:57 BUN/Creatinine Ratio 30.0 (10-20) H 11/29/19 23:57 Glucose 138 mg/dl (70-99) H 11/29/19 23:57 Calcium 9.2 mg/dl (8.5-10.1) 11/29/19 23:57 Total Bilirubin 0.2 mg/dl (0.2-1) 11/29/19 23:57 AST 23 U/L (15-37) 11/29/19 23:57 ALT 23 U/L (12-78) 11/29/19 23:57 Alkaline Phosphatase 96 U/L (45-117) 11/29/19 23:57 Total Protein 7.8 gm/dl (6.4-8.2) 11/29/19 23:57 Albumin 3.6 gm/dl (3.4-5.0) 11/29/19 23:57 Globulin 4.2 gm/dl (2.5-4.0) H 11/29/19 23:57 Albumin/Globulin Ratio 0.9 (0.9-2) 11/29/19 23:57 Diagnostic Findings [facility] Patient: JOSE GUIDRY (Female) : 50 Status: ER Date: 11/30/19 00:36 Room #: History: EVAL FX LEFT TIB / FIB Slices: [id number] Priors: Tech: Miguel Ruiz @ [id number] Exams: CT OTHER LEFT TIB/FIB Accession Numbers: [id number] Preliminary Findings Only See Final Report For Complete Findings CT OTHER - LEFT TIB/FIB: No acute comminuted fracture involving the distal tibia and fibula. Fracture of the distal tibia extends to the articular surface. Also, subtle acute fracture involving the fibular head, nondisplaced. No malalignment at the proximal articulation of the fibula and tibia. Ankle mortise appears to be grossly intact. Soft tissue swelling along the fracture sites. No radio opaque foreign bodies. No large hematomas. Radiologist: Dick Ramos M.D. Study ready at 00:41 and initial results transmitted at 00:53 *This report constitutes a preliminary interpretation only. Non-acute findings felt to be unrelated to the clinical presentation may not be discussed in this report. The study will be interpreted and a final report will be generated by the local Radiologist the following shift. To reach the hospital radiology department call [phone]. If a discrepancy is found between the preliminary and final interpretations of this study, please notify us via our Client Portal at [email or web address] under QA [email or web address].You can also fax this report with a description of the discrepancy, or include the final report, to our daytime fax number [phone].If faxing, please indicate the severity of discrepancy using one of the following categories: [ ] 1 - Agree/Informational [ ] 2 - Unlikely to Affect Management [ ] 3 - Possible Eventual Change of Management [ ] 4 - Probable Immediate Change of Management For all other patient related information, please fax us at [phone]. [id number] Code Status & VTE Plan Code Status Full code VTE Prophylaxis Plan VTE Prophylaxis will be ordered: Yes PG Care Time/CCT Total # of Minutes Spent Total Time Spent with Patient: Total time spent is greater than 50% in coordination of care (as documented) at patient's floor/unit and/or counseling patient: Coding Level of Care Code 27461 Initial Inpt Care Lvl 3 Diagnoses Closed fracture of left tibial plafond with fibula involvement S82.872A; S82.832A Hypothyroidism E03.9 Osteoporosis M81.0 Vitamin D deficiency E55.9 Impaired fasting glucose R73.01
[2019-11-30 07:17] LABS: Appearance Urine Clear (Clear); Bacteria Urine Automated 1+ (Negative); Bilirubin Urine Negative (Negative); Blood Urine Negative (Negative); Color Urine Yellow; Epithelial Cell Urine Auto 20-30 /lpf (0-5); Glucose Urine UA Negative (Negative); Ketones Urine Negative (Negative); Leukocyte Esterase Urine Trace (Negative); Nitrite Urine Negative (Negative); Protein Urine Negative (Negative); RBC Urine Automated 0-4 /hpf (0-4); Specific Gravity Urine 1.019 (1.000-1.030); Urobilinogen Urine Negative (Negative)
--- NOTE | 2019-11-30 08:36 | XRay Report ---
XR tibia fibula LT 2V HISTORY: 69 years-old Female fracture acute left lower leg pain with fracture COMPARISON: CT of the left tibia and fibula of same day TECHNIQUE: 3 views of the left tibia and fibula FINDINGS: Acute comminuted intra-articular fracture of the distal tibial diaphysis and metadiaphysis. There is apex lateral angulation of 9 degrees. Lateral angulation of the distal fracture fragment measures up to 8 mm. Fracture extends into the tibial plafond. Additionally, there is an acute comminuted fractur e of the distal metadiaphyseal fibular which demonstrates 9 degrees apex volar angulation and 12 degr ees apex lateral angulation with 8 mm posterior displacement of the distal fracture fragment. Moderat e associated soft tissue swelling. Tibiotalar articulation appears preserved. Osteoarthritis of the k nee. IMPRESSION: 1. Acute comminuted, angulated and displaced intra-articular fracture of the distal tibia as above. 2. Acute comminuted, angulated and displaced extra-articular fracture of the distal fibula as above. ACT 112: Negative or not required by law. The above report was generated using voice recognition software. It may contain grammatical, syntax o r spelling errors. Electronically signed by: William Calvo M.D. 11/30/2019 8:34 AM
--- NOTE | 2019-11-30 08:39 | XRay Report ---
XR chest 1V portable HISTORY: 69 years-old Female preop preoperative exam. No acute chest complaints COMPARISON: None TECHNIQUE: Portable AP view of the chest FINDINGS: Cardiomediastinal and hilar silhouettes are within normal limits. Mild bilateral interstitial coarsen ing is presumably on a chronic basis. Mild right hemidiaphragmatic elevation. Mild pleural thickening of the right lung apex. There is no pneumothorax, pleural effusion or overt pulmonary edema. There a re multiple subcentimeter nodular foci of the bilateral mid and upper lung zones measuring up to appr oximately 4 mm. Degenerative changes of the shoulders and spine. IMPRESSION: 1. No acute process. 2. Nonspecific subtle subcentimeter nodular foci of the mid and upper lung zones measuring up to 4 mm . Correlate with prior imaging. If no prior imaging is available, a follow-up nonemergent CT of the c hest should be considered. ACT 112: Negative or not required by law. The above report was generated using voice recognition software. It may contain grammatical, syntax o r spelling errors. Electronically signed by: William Calvo M.D. 11/30/2019 8:37 AM
--- NOTE | 2019-11-30 09:00 | CT Scan Report ---
CT tib/fib LT wo con HISTORY: 69 years-old Female comminuted fracture through ankle acute fracture of the left lower leg COMPARISON: Left tibia and fibula radiographs 11/29/2019 TECHNIQUE: Multiple axial CT images of the left tibia and fibula were obtained without the use of IV contrast. A dose lowering technique was used consistent with the principals of ALARA. FINDINGS: Mild subcutaneous edema of the distal lower leg adjacent to the acute fracture sites. No intramuscula r hematoma or opaque foreign body. Tendons and ligaments are not well evaluated by CT technique. Type II accessory navicular. Trace tibiotalar joint effusion. 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 Acute comminuted fracture of the d istal tibia is noted. Obliquely oriented fracture of the distal tibial shaft is seen at 10.8 cm proxi mal to the tibial plafond. This demonstrates apex lateral angulation of 9 degrees with displacement o f 8 mm laterally. Fracture extends into the distal articular surface of the tibia with comminuted int ra-articular fractures thinning into the anterior, mid and posterior portions of the tibial plafond a nd. Anterior malleable or fracture fragment is displaced posteriorly 1.2 cm. No definite intra-articu lar fracture fragment. Talar dome is smooth without osteochondral defect. No acute fracture of the hi ndfoot identified. Enthesophytes of the calcaneus. There is an acute comminuted fracture of the distal fibular metadiaphysis which demonstrates 12 degre es apex lateral angulation with 8 mm posterior displacement. Fracture extends into the distal tibiofi bular syndesmosis. Proximal mid portions of the tibia appear intact. IMPRESSION: 1. Acute comminuted, displaced and angulated intra-articular fracture of the distal tibia with displa cement and angulation as above. 2. Acute comminuted, displaced and angulated intra-articular fracture of the distal fibula with fract ure extending into the distal tibiofibular syndesmosis. 2. No pathologic widening of the distal tibiofibular syndesmosis or tibiotalar joint. 4. No definite intra-articular loose body identified. ACT 112: Negative or not required by law. The above report was generated using voice recognition software. It may contain grammatical, syntax o r spelling errors. Electronically signed by: William Calvo M.D. 11/30/2019 8:58 AM
--- NOTE | 2019-11-30 09:07 | Orthopedic Consultation ---
Date of Consultation November 30, 2019 Assessment & Plan (1) Closed fracture of left tibial plafond with fibula involvement: Left midshaft tibia with extension to the distal tibia pilon and medial malleolus. Comminuted left lateral malleolus. Continue splint and NWB on the LLE. Discussed icing and elevating as much as possible. Pain control Discussed ORIF of the left tib/fib fx, potential risks, benefits, complications, alternatives, and rehab. We also discussed the swelling that typically occurs with this fx and the usual wait to fix the fx to avoid wound complications. She will be able to eat breakfast today. The case will be discussed with Dr. Andres and Dr. Mancilla to determine op timal time for ORIF of the fx. Supervising Physician Co-Signing Physician Notes Patient was seen and examined this morning. I agree with JENNIFER Carbajal's note above. This is a 69-year-old fairly healthy female who sustained a ground-level fall and injured her left ankle. She does note a history of osteoporosis, for which she was on Fosamax for a few years about 15 years ago. She has not been on any bisphosphonates since then. She says that she had a recent DEXA scan in August which showed osteopenia. She is currently on calcium and vitamin D. Her imaging shows a severely comminuted and complex fracture pattern that would typically be expected with a very high energy injury. She has significant posterior comminution and impaction of the distal tibial articular surface, along with severe comminution of the distal fibula and tibiofibular joint. There is a separate tibial shaft fracture more proximally. Fortunately, despite the severity of the injury on x-rays, her soft tissues overall look fairly good at this point. Her compartments are still soft, and she has no fracture blisters forming; no evidence of compartment syndrome at this point. I did stress to her that soft tissue swelling will likely maximize at approximately 48 hours after injury, and this would be the worst time to perform any surgical intervention. Hopefully with her history of osteoporosis, severity of her fracture is more of a problem with her bone quality rather than the energy of the injury. Due to the complexity of the fracture pattern with potential for multiple required approaches to the ankle and tibia to adequately treat this fracture pattern, I will defer her treatment to our foot and ankle specialist, Dr. Mancilla. I spoke with Dr. Mancilla today about her injury and potential treatment plans. He agrees that we need to wait a few days to allow the soft tissue swelling to resolve. He has agreed to take over her care, and potentially do her surgery sometime between Sunday and Sunday. For now she needs to remain nonweightbearing and keep that leg elevated. She may get up and transfer with the assistance of therapy if her pain is controlled enough. She needs close monitoring of her skin condition over the next few days. I did split her splint dressings distally to allow for close monitoring. History of Present Illness Reason for Consultation: left ankle pain Attending Physician: Pernell Grady, History of Present Illness This is a patient who was walking in her yard last evening. She was on a hillside and fell in the dark. Uncertain of the exact mechanism of injury but the left leg twisted and was under her as she fell. She had significant pain and 911 was called. She was brought to the ER for x-rays and later a CT scan. She was then splinted and was going to be discharged home to follow up outpatient but her pain was too severe. She was admitted for pain control and we were consulted for definitive tx. Allergies Allergy/AdvReac Type Severity Reaction Status Date / Time bee venom protein (honey bee) Allergy Intermediate SWELLING Verified 11/29/19 23:17 Penicillins Allergy Unknown UNKNOWN - Verified 11/29/19 23:17 TOLD TO NOT HAVE A CHILD house dust AdvReac Congested Verified 11/29/19 23:17 Home Medications Home Medications Medication Instructions Recorded Confirmed Type ascorbic acid (vitamin C) [Vitamin 2,000 g PO DAILY 01/15/19 11/29/19 History C] calcium carbonate [Calcium 600] 600 mg PO DAILY 01/15/19 11/29/19 History cholecalciferol (vitamin D3) 1,000 unit PO QAM 01/15/19 11/29/19 History [Vitamin D3] melatonin 5 mg PO HS PRN 01/15/19 11/29/19 History multivitamin 1 tab PO QAM 01/15/19 11/29/19 History levothyroxine 50 mcg tablet 50 mcg PO QAM #90 tab 05/27/19 11/29/19 Rx Patient History Medical History Bilateral ovarian cysts (Resolved) Dyslipidemia (Chronic) Hepatitis C infection 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 Hypothyroidism (Chronic) Impaired fasting glucose (Chronic) Osteoporosis (Chronic) 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) Severe cervical dysplasia (Chronic) Vitamin D deficiency (Chronic) Surgical History History of bilateral breast reduction surgery History of breast biopsy History of colonoscopy History of colposcopy History of D&C History of loop electrical excision procedure (LEEP) S/P bilateral salpingo-oophorectomy laparoscopic Status post hysteroscopic polypectomy Family History Mother Family hx of colon cancer Breast cancer Colorectal cancer Father Family history of diabetes mellitus Heart disease Grandmother (Maternal) Hypertension Other Cancer Social History Preferred Language: Kinyarwanda Communication Ability: Effective Press Loader Required: No Beliefs That Will Affect Care: None Current Living Situation: Parent Current Living Situation Comment: elderly mother lives with pt Other Information That Helps Us Care for You: No Feels Safe at Home: Yes Smoking Status: Never smoker Second Hand Exposure: Yes (as a child) ; Hx Alcohol Use: Yes Alcohol type: wine Hx Substance Use: No Physical Exam Constitutional: WD/WN, vitals as above ENMT: external ear and nose normal, oropharynx normal Neck: trachea midline, no thyromegaly Musculoskeletal: Ankle: + deformity (varus alignment left ankle/lower leg) and + limited ROM of ankle (left ankle: known fx. Splint in place); no skin erythema Neurologic: normal touch/pain/proprioception Left foot: toes are mobile. Cap refill <2 seconds. Sensation to light touch is intact. Psychiatric: A+Ox3, euthymic affect Speech: normal rate/rhythm/volume of speech Results & Data ([facility]) Vital Signs (Past 12 Hours) Vital Signs Temp Pulse Pulse Pulse Resp BP BP 11/30/19 06:51 36.5 C 92 H 16 144/80 H 11/30/19 02:40 36.4 C L 87 14 151/84 H 11/30/19 02:17 103 H 18 157/87 H 11/30/19 02:15 103 H 18 164/80 H 11/30/19 01:44 101 H 19 164/80 H 11/30/19 00:28 88 16 164/77 H 11/29/19 23:09 36.4 C L 83 16 170/84 H Pulse Ox 11/30/19 06:51 98 11/30/19 02:40 96 11/30/19 02:17 97 11/30/19 02:15 96 11/30/19 01:44 98 11/30/19 00:28 96 11/29/19 23:09 96 Diagnostic Findings Left tib/fib and left lower extremity CT scan reviewed. There is a varus deformity of the left lower leg from the midshaft tibia fx. The midshaft tibia fx extends distal to the ankle joint with comminution at the level of the joint and medial malleolus. There is also a displaced and comminuted lateral malleolus fx.
--- NOTE | 2019-11-30 11:17 | Electrocardiogram Report ---
Test Reason : Blood Pressure : / mmHG Vent. Rate : 079 BPM Atrial Rate : 079 BPM P-R Int : 172 ms QRS Dur : 084 ms QT Int : 398 ms P-R-T Axes : 043 050 042 degrees QTc Int : 456 ms Poor data quality, interpretation may be adversely affected Normal sinus rhythm Normal ECG When compared with ECG of 24-JAN-2019 13:17, No significant change was found Confirmed by Jeremi Espinoza ([id number]) on 11/30/2019 11:16:45 AM Referred By: REFERRED SELF Confirmed By:Jg Espinoza
--- NOTE | 2019-11-30 13:34 | History & Physical Bridge Note ---
Date of Service November 30, 2019 History & Physical Bridge Note I have examined the patient, reviewed the History & Physical and in the interval since the performance of the History & Physical I have noted the following changes of clinical significance: pain controlled, lower leg splinted appreciate consultation from orthopedics no signs of compartment syndrome at this time, splint has been split to allow visualization of soft tissues maximal swelling would likely occur tomorrow remain non-weight bearing to the left leg case will be referred to Dr. Mancilla due to complexity of fracture likely go to OR [facility] depending on clinical course allow her to eat keep in hospital to monitor for any signs of compartment syndrome discuss with ortho tomorrow about whether she needs to remain in hospital until surgery no other complaints, eating and drinking well, no issues breathing, no chest pain/pressure this was a mechanical fall, leg got caught underneath her body on a grassy incline and she fell, twisted at the same time she is on calcium and vitamin D, had DEXA scan that showed osteopenia but not osteoporosis, h/o taking Fosamax years ago
[2019-11-30] MEDS: OXYCODONE/ACETAMINOPHEN 5mg/325mg TAB PO PRN (19:49)
[2019-12-01] MEDS: HYDROmorphone INJ 0.5 MG/0.5 ML SYR IV PRN (02:08)
[2019-12-01] MEDS: OXYCODONE/ACETAMINOPHEN 5mg/325mg TAB PO PRN ×3 (05:23→14:06)
[2019-12-01] MEDS: LEVOTHYROXINE SODIUM 50 MCG TABLET PO SCH (05:23)
--- NOTE | 2019-12-01 09:20 | Hospitalist Progress Note ---
Date of Service December 01, 2019 Assessment & Plan (1) Closed fracture of left tibial plafond with fibula involvement: Patient will be placed in a immobilizing splint Until surgical delineation by orthopedist. Acetaminophen 1000 mg IV every 8 hours PRN mild pain or temperature. Parenteral pain control Activity is nonweightbearing left lower extremity Consult orthopedic surgery, Dr. Mancilla, planning upcoming surgical intervention either 12/02 or 12/04 depending on or availability (2) Hypothyroidism: Continue levothyroxine 50 mcg daily (3) Osteoporosis: Continue calcium and vitamin D (4) Vitamin D deficiency: Continue vitamin D (5) Impaired fasting glucose: Random glucose 138 upon admission, would not pursue routine testing. (6) Abnormal CT scan: Patient with multiple small nodules on her CT scan will need CT scan follow-up of her chest will roll until nodule program Admission and Anticipated Discharge Date Admission Date: November 30, 2019 Subjective this patient is fearful about her upcomming surgery she is going to have surgery with Dr Mancilla for a complex tib /fib fracture Review of Systems Review of Systems: Mild distress and fatigue no headache, blurry or double vision no speech or swallowing issues no chest pain, pressure or palpitations no shortness of breath, cough or wheezes no abdominal pain, nausea or vomiting, diarrhea or constipation no dysuria, hematuria or frequency Significant left distal leg pain is worse with movement no back pain, CVA tenderness or radicular pain no bruising, bleeding or rashes no focal signs of weakness or numbness or altered sensation no complaints or anxiety or depression Physical Exam Physical Exam: The patient appeared well nourished and normally developed. Vital signs as documented. Head exam is normocephalic atraumatic no scleral icterus Neck is without JVD, thyromegaly, or carotid bruits. Lungs are clear to auscultation, no focal loss of breath sounds Cardiac exam, Rhythm is regular.. No murmurs, rubs or gallops. Abdominal exam reveals normal bowel sounds, soft non tender, no masses Extremities good capillary refill and able to move her toes with good sensation intact in the area that has splint in place to the distal left leg Neurologic exam is alert and oriented, no focal loss of strength or sensation Skin is without bruises or rashes Psychologically is without concerns for anxiety or depression Results & Data Results & Data ([facility]) Vital Signs (Past 12 Hours) Vital Signs Temp Pulse Resp BP Pulse Ox 12/01/19 08:20 97.7 F 74 18 162/91 H 93 11/30/19 23:38 97.7 F 71 16 129/74 92 PG Care Time/CCT Total # of Minutes Spent Total Time Spent with Patient: Total time spent is greater than 50% in coordination of care (as documented) at patient's floor/unit and/or counseling patient: Coding Level of Care Code 38550 Subseq Hosp Care Lvl 2 Diagnoses Closed fracture of left tibial plafond with fibula involvement S82.872A; S82.832A Hypothyroidism E03.9 Osteoporosis M81.0 Vitamin D deficiency E55.9 Impaired fasting glucose R73.[address] scan R93.89
[2019-12-01 10:22] LABS: Hematocrit (blood only) 40.8 % (37-47); Hemoglobin 13.4 g/dL (12.0-16.0); Mean Corpuscular Hemoglobin 28.6 pg (25-34); Mean Corpuscular Hgb Conc 32.8 g/dL (32-36); Mean Platelet Volume 9.8 fL (7.4-10.4); Platelet Count 228 K/uL (130-400); RDW Coefficient of Variation 12.5 % (11.5-14.5); RDW Standard Deviation 40.1 fL (36.4-46.3); Red Blood Count 4.69 M/uL (4.2-5.4); White Blood Count 12.28 K/uL (4.8-10.8)
[2019-12-01 10:37] LABS: BUN Creatinine Ratio 17.5 (10-20); Calcium 9.2 mg/dl (8.5-10.1); Creatinine Clr Calc Pharmacy 74.8 ml/min; Est GFR (African American) 95.8; Est GFR (Non-African American) 82.7; Potassium 4.1 mmol/L (3.5-5.1)
[2019-12-02] MEDS: OXYCODONE HCL IR 5 MG TAB (IMMEDIATE RELEASE) PO PRN ×4 (00:11→23:40)
[2019-12-02] MEDS: LEVOTHYROXINE SODIUM 50 MCG TABLET PO SCH (06:14)
--- NOTE | 2019-12-02 13:35 | Orthopedic Progress Note ---
Date of Service December 02, 2019 Assessment & Plan (1) Closed fracture of left tibial plafond with fibula involvement: Left midshaft tibia with extension to the distal tibia pilon and medial malleolus. Comminuted left lateral malleolus. Continue splint and NWB on the LLE. Continue icing and elevating as much as possible. Pain control [facility] MD/PA discussed ORIF of the left tib/fib fx, potential risks, benefits, complications, alternatives, and rehab. They also discussed the swelling that typically occurs with this fx and the usual wait to fix the fx to avoid wound complications. Currently her swelling is mild at this time and I can appreciate no skin problems such as blisters at this time either. Dr. Mancilla is planning for ORIF tomorrow. Admission and Anticipated Discharge Date Admission Date: November 30, 2019 Anticipated date of discharge: 12/02/19 Subjective Patient currently sitting up in bed awake and alert. Affected extremity is not ed to be elevated. Pain control is adequate at this time. She states that the pain worsens when she gets up to use the restroom. No other complaints at this time. Physical Exam Physical Exam: Patient splint is loosened and the skin around the ankle itself is been examined and shows no signs of blistering. She does have some mild swelling of the ankle at this time. Cap refill is less than 2 seconds. Sensation is intact. She has good mobility with her toes but does cause some discomfort at the top of her foot that goes back to her ankle when she does this. Dorsalis pedis pulse present. Splint rewrapped without difficulty. Results & Data ([facility]) Vital Signs (Past 12 Hours) Vital Signs Temp Pulse Resp BP Pulse Ox 12/02/19 08:16 138/80 12/02/19 07:50 36.5 C 95 H 18 95
--- NOTE | 2019-12-02 14:53 | Anesthesiology Consultation ---
Date of Service December 02, 2019 Assessment & Plan (1) Encounter for pre-operative examination: Chart Review Chart Review: Acceptable Risk for Surgery and Patient NOT seen in Pre Admission Testing Travel screen/history reviewed. Patient low risk for covid infection. Consults Requested none History Surgery Operation Date: 12/03/19 07:00 Proposed Procedures p Left Tibia-Fibula Fracture Open Reduction Internal Fixation - Margarito Mancilla DO Height/Weight Height: 5 ft 4 in Weight: 83.1 kg Allergies Allergy/AdvReac Type Severity Reaction Status Date / Time bee venom protein (honey bee) Allergy Intermediate SWELLING Verified 11/30/19 16:31 Penicillins Allergy Mild UNKNOWN - Verified 11/30/19 16:31 TOLD TO NOT HAVE A CHILD house dust AdvReac Mild Congested Verified 11/30/19 16:30 Medications Home Medications Medication Instructions Recorded Confirmed Last Taken ascorbic acid (vitamin C) [Vitamin 2,000 g PO DAILY 01/15/19 11/29/19 01/30/19 17:00 C] calcium carbonate [Calcium 600] 600 mg PO DAILY 01/15/19 11/29/19 01/30/19 17:00 cholecalciferol (vitamin D3) 1,000 unit PO QAM 01/15/19 11/29/19 01/30/19 06:30 [Vitamin D3] melatonin 5 mg PO HS PRN 01/15/19 11/29/19 01/29/19 23:00 multivitamin 1 tab PO QAM 01/15/19 11/29/19 01/30/19 06:30 levothyroxine 50 mcg tablet 50 mcg PO QAM #90 tab 05/27/19 11/29/19 Unknown Active Medications Generic Name Dose Route Start Last Admin Trade Name Freq PRN Reason Stop Dose Admin Hydromorphone HCl 0.5 mg 11/30/19 02:46 12/01/19 02:08 Dilaudid IV 12/14/19 02:45 0.5 mg Q3H PRN Administration Severe Pain Acetaminophen 1,000 mg in 100 mls @ 400 mls/hr 11/30/19 02:46 12/01/19 19:17 Ofirmev IV 12/03/19 02:45 Infused Q8H PRN Infusion Mild Pain Levothyroxine Sodium 50 mcg 11/30/19 06:30 12/02/19 06:14 Synthroid PO 12/30/19 06:29 50 mcg DAILYBB GURPREET Administration Oxycodone HCl 10 mg 12/01/19 17:36 12/02/19 06:37 Roxicodone Immediate Rel PO 12/15/19 17:44 10 mg Q6H PRN Administration Moderate Pain Past Medical History Medical History (Updated 12/02/19 @ 14:52 by Venancio Jimenez MD) Bilateral ovarian cysts (Resolved) Dyslipidemia (Chronic) Hepatitis C infection 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 Hypothyroidism (Chronic) Impaired fasting glucose (Chronic) Osteoporosis (Chronic) 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) Severe cervical dysplasia (Chronic) Vitamin D deficiency (Chronic) Past Family History Family History Mother Family hx of colon cancer Breast cancer Colorectal cancer Father Family history of diabetes mellitus Heart disease Grandmother (Maternal) Hypertension Other Cancer Past Surgical History Surgical History (Updated 12/02/19 @ 14:50 by Venancio Jimenez MD) History of bilateral breast reduction surgery History of breast biopsy History of colonoscopy History of colposcopy History of D&C History of loop electrical excision procedure (LEEP) S/P bilateral salpingo-oophorectomy laparoscopic. 01/31/19. MAC 3, grade 1 view. 7.0ETT no issues. Status post hysteroscopic polypectomy Social History Smoking Status: Never smoker Hx Alcohol Use: Yes Alcohol type: wine alcohol intake frequency: a few times a week Hx Substance Use: No substance use type: does not use Physical Exam Vital Signs Last Vital Signs Temp 36.5 C 12/02/19 07:50 Pulse 95 H 12/02/19 07:50 Resp 18 12/02/19 07:50 BP 138/80 12/02/19 08:16 Pulse Ox 95 12/02/19 07:50 Testing Laboratory Results 12/01/19 10:06 12/01/19 10:06 Urine Color Yellow 11/30/19 06:25 Urine Appearance Clear (Clear) 11/30/19 06:25 Urine pH 5.0 (4.5-7.5) 11/30/19 06:25 Ur Specific [place] 1.019 (1.000-1.030) 05/17/20 06:25 Urine Protein Negative (Negative) 11/30/19 06:25 Urine Glucose (UA) Negative (Negative) 11/30/19 06:25 Urine Ketones Negative (Negative) 11/30/19 06:25 Urine Nitrite Negative (Negative) 11/30/19 06:25 Ur Leukocyte Esterase Trace (Negative) H 11/30/19 06:25 Urine WBC (Auto) 1-5 /hpf (0-5) 11/30/19 06:25 Urine RBC (Auto) 0-4 /hpf (0-4) 11/30/19 06:25 U Hyaline Cast (Auto) 1-5 /lpf (0-5) 11/30/19 06:25 U Epithel Cells (Auto) 20-30 /lpf (0-5) H 11/30/19 06:25 Urine Bacteria (Auto) 1+ (Negative) H 11/30/19 06:25 11/30/19 06:25 Urine Culture - Final Urine,Clean Catch More than three types of organisms present, all high counts mixed probable skin faye - No further identifications or sensitivities to follow. Electrocardiogram Date: 11/29/19 Findings: + NSR @ (79) Normal sinus rhythm Normal ECG When compared with ECG of 24-JAN-2019 13:17, No significant change was found Confirmed by Jeremi Espinoza ([id number]) on 11/30/2019 11:16:45 AM Chest X-Ray Date: 11/30/19 IMPRESSION: 1. No acute process. 2. Nonspecific subtle subcentimeter nodular foci of the mid and upper lung zones measuring up to 4 mm. Correlate with prior imaging. If no prior imaging is available, a follow-up nonemergent CT of the chest should be considered.
--- NOTE | 2019-12-02 17:46 | Hospitalist Progress Note ---
Date of Service December 02, 2019 Assessment & Plan (1) Closed fracture of left tibial plafond with fibula involvement: Patient remains in a immobilizing splint planned ORIF on 12/02 Acetaminophen 1000 mg IV every 8 hours PRN mild pain or temperature. Parenteral pain control Activity is nonweightbearing left lower extremity (2) Hypothyroidism: Remains on levothyroxine 50 mcg daily (3) Osteoporosis: Continues on calcium and vitamin D (4) Vitamin D deficiency: Continue vitamin D (5) Impaired fasting glucose: Random glucose 138 upon admission, would not pursue routine testing. (6) Abnormal CT scan: Patient with multiple small nodules on her CT scan will need CT scan follow-up of her chest will enroll in the lung nodule program Admission and Anticipated Discharge Date Admission Date: November 30, 2019 Subjective Patient currently sitting up in bed awake and alert. Affected extremity is with ice pack and elevated. Pain control remains adequate at this time. She states that the pain worsens when she gets up to use the restroom. No other complaints at this time. Is anxious about the planning of her surgery and the details of her recovery Review of Systems Review of Systems: Mild distress and fatigue no headache, blurry or double vision no speech or swallowing issues no chest pain, pressure or palpitations no shortness of breath, cough or wheezes no abdominal pain, nausea or vomiting, diarrhea or constipation no dysuria, hematuria or frequency Significant distal left leg pain but no numbness paresthesias are present no back pain, CVA tenderness or radicular pain no bruising, bleeding or rashes no focal signs of weakness or numbness or altered sensation no complaints or anxiety or depression Physical Exam Physical Exam: The patient appeared well nourished and normally developed. Vital signs as documented. Head exam is normocephalic atraumatic no scleral icterus Neck is without JVD, thyromegaly, or carotid bruits. Lungs are clear to auscultation, no focal loss of breath sounds Cardiac exam, Rhythm is regular.. No murmurs, rubs or gallops. Abdominal exam reveals normal bowel sounds, soft non tender, no masses Left leg has a splint on capillary refill is noted to be present as well as gross sensation Neurologic exam is alert and oriented, no focal loss of strength or sensation Skin is without bruises or rashes Psychologically is without concerns for anxiety or depression Results & Data Results & Data ([place]) Vital Signs (Past 12 Hours) Vital Signs Temp Pulse Resp BP Pulse Ox 12/02/19 15:45 97.5 F L 78 18 155/83 H 98 12/02/19 08:16 138/80 12/02/19 07:50 97.7 F 95 H 18 95 PG Care Time/CCT Total # of Minutes Spent Total Time Spent with Patient: Total time spent is greater than 50% in co ordination of care (as documented) at patient's floor/unit and/or counseling patient: Coding Level of Care Code 73693 Subseq Hosp Care Lvl 2 Diagnoses Closed fracture of left tibial plafond with fibula involvement S82.872A; S82.832A Hypothyroidism E03.9 Osteoporosis M81.0 Vitamin D deficiency E55.9 Impaired fasting glucose R73.[address] scan R93.89
[2019-12-03] MEDS: LEVOTHYROXINE SODIUM 50 MCG TABLET PO SCH (05:23)
[2019-12-03] MEDS: OXYCODONE HCL IR 5 MG TAB (IMMEDIATE RELEASE) PO PRN (08:08)
--- NOTE | 2019-12-03 09:30 | Hospitalist Progress Note ---
Date of Service December 03, 2019 Assessment & Plan (1) Closed fracture of left tibial plafond with fibula involvement: planned ORIF on 12/02 Acetaminophen 1000 mg IV every 8 hours PRN mild pain or temperature. Parenteral pain control and offering oral oxycodone Activity is nonweightbearing left lower extremityplans for rehab referral after OR PT OT evaluation will be requested (2) Hypothyroidism: Remains on levothyroxine 50 mcg daily (3) Osteoporosis: Continues on calcium and vitamin D (4) Vitamin D deficiency: Continue vitamin D (5) Impaired fasting glucose: Random glucose 138 upon admission, would not pursue routine testing. (6) Abnormal CT scan: Patient with multiple small nodules on her CT scan will need CT scan follow-up of her chest will enroll in the lung nodule program Admission and Anticipated Discharge Date Admission Date: November 30, 2019 Subjective Patient scheduled for the operating room today. She is no complaints or problems she has some anxiety about the operating room and general chest pain pressure shortness of breath overnight Review of Systems Review of Systems: Mild distress and fatigue no headache, blurry or double vision no speech or swallowing issues no chest pain, pressure or palpitations no shortness of breath, cough or wheezes no abdominal pain, nausea or vomiting, complains of some mild constipation no dysuria, hematuria or frequency Persistent distal left lower leg pain no back pain, CVA tenderness or radicular pain no bruising, bleeding or rashes no focal signs of weakness or numbness or altered sensation no complaints or anxiety or depression Physical Exam Physical Exam: The patient appeared well Vital signs as documented. Lungs are clear to auscultation and appear unlabored Cardiac exam, Rhythm is regular.. No murmurs, rubs or gallops. Abdominal exam reveals normal bowel sounds, soft non tender, no masses Extremities distal capillary refill and sensations intact in the left splinted leg Neurologic exam is alert and oriented, no focal loss of strength or sensation Skin is without bruises or rashes Psychologically is without concerns for anxiety or depression Results & Data Results & Data ([facility]) Vital Signs (Past 12 Hours) Vital Signs Temp Pulse Resp BP Pulse Ox 12/03/19 07:06 97.9 F 75 16 149/85 H 97 12/02/19 23:55 97.9 F 77 15 138/85 94 PG Care Time/CCT Total # of Minutes Spent Total Time Spent with Patient: Total time spent is greater than 50% in coordination of care (as documented) at patient's floor/unit and/or counseling patient: Coding Level of Care Code 37315 Subseq Hosp Care Lvl 2 Diagnoses Closed fracture of left tibial plafond with fibula involvement S82.872A; S82.832A Hypothyroidism E03.9 Osteoporosis M81.0 Vitamin D deficiency E55.9 Impaired fasting glucose R73.[address] scan R93.89
[2019-12-03] MEDS ORDERED: BUPIVACAINE 0.5 % 5 MG/1 ML MPF 30ML VIAL ONE (12:52)
[2019-12-03] MEDS ORDERED: SODIUM CHLORIDE 0.9% INJ 10 ML VIAL ONE (12:52)
[2019-12-03] MEDS ORDERED: fentaNYL citrate 100 MCG/2 ML VIAL ONE (13:00)
[2019-12-03] MEDS ORDERED: PHENYLEPHRINE 100MCG/ML 5ML SYR ONE (13:00)
[2019-12-03] MEDS ORDERED: MIDAZOLAM HCL 1 MG/ML 2ML VIAL ONE (13:00)
[2019-12-03] MEDS ORDERED: DEXAMETHASONE SOD INJ 4 MG/ML VIAL ONE (13:00)
[2019-12-03] MEDS ORDERED: ePHEDrine sulfate 50 MG/ML SYR ONE (13:00)
[2019-12-03] MEDS ORDERED: PROPOFOL IV EMULSION 10 MG/ML 20 ML VIAL IV ONE (13:00)
[2019-12-03] MEDS ORDERED: ONDANSETRON INJ 2 MG/ML 2 ML VIAL ONE (13:00)
[2019-12-03] MEDS ORDERED: LIDOCAINE HCL 2% 2 ML VIAL/AMP(20MG/ML) INFIL ONE (13:00)
[2019-12-03] MEDS ORDERED: CEFAZOLIN 2000MG 2,000 MG/15 ML SYR IV ONE (14:23)
--- NOTE | 2019-12-03 14:42 | History & Physical Bridge Note ---
Date of Service December 03, 2019 History & Physical Bridge Note I have examined the patient, reviewed the History & Physical and in the interval since the performance of the History & Physical I have noted the following changes of clinical significance: no changes noted
[2019-12-03] MEDS ORDERED: ATROPINE SULFATE 0.1 MG/ML 10ML SYR IV PRN (14:44)
[2019-12-03] MEDS ORDERED: LABETALOL HCL IV 5 MG/ML 20ML IV PRN (14:44)
[2019-12-03] MEDS ORDERED: HYDROmorphone INJ 1 MG/ML SYRINGE IV PRN (14:44)
[2019-12-03] MEDS ORDERED: KETOROLAC 30 MG/ML VIAL IV PRN (14:44)
[2019-12-03] MEDS ORDERED: ONDANSETRON INJ 2 MG/ML 2 ML VIAL IV PRN ×2 (14:44→20:05)
[2019-12-03] MEDS ORDERED: BACITRACIN INJ 50,000 UNIT VIAL ONE (15:12)
[2019-12-03] MEDS ORDERED: SUCCINYLCHOLINE CHLORIDE 20 MG/ML 10 ML VIAL ONE (16:25)
--- NOTE | 2019-12-03 18:44 | Fluoroscopy Report ---
INTRAOPERATIVE RADIOGRAPHS CLINICAL HISTORY: Open reduction and internal fixation of the left tibia-fibula. Fluoroscopy time: 104 seconds. FINDINGS: 4 spot fluoroscopic views of the left tibia and fibula are correlated with radiographs date d 11/29/2019. There has been buttress plate fixation of distal tibial and fibular fractures with abigail ration of near-anatomic alignment. Numerous cortical screws transfix the buttress plates. Overlying s oft tissue edema is noted. IMPRESSION: Intraoperative images from open reduction and internal fixation of the left tibia and fib rhona. Electronically signed by: Donaldo Duke M.D. 12/03/2019 6:42 PM
--- NOTE | 2019-12-03 19:08 | Post Operative Brief Note ---
Immediate Post Op Note v1 Date of Surgery December 03, 2019 Pre & Post Diagnosis Operation Date: 12/03/19 07:00 Pre-Op Diagnosis: Closed fracture of left tibial plafond with displaced fibula fracture, left midshaft tibia with extension to the distal tibia pilon and medial malleolus, comminuted left lateral malleolus. Post-Op Diagnosis: Closed fracture of left tibial plafond with displaced fibula fracture, left midshaft tibia with extension to the distal tibia pilon and medial malleolus, comminuted left lateral malleolus. I identified the patient and participated in the time-out.: Yes Procedure Operation Date: 12/03/19 07:00 Actual Procedures p Left open reduction, internal fixation, complex tibia pilon and tibial shaft segmented fracture, open reduction internal fixation comminuted segmental fibula fracture(Left) - Margarito Mancilla DO Surgeon Margarito Mancilla DO Lead Fabricator Dagoberto Carbajal PA-C Estimated Blood Loss 35 Findings Consistent with Post-Op Diagnosis Specimens None Anesthesia Type General Regional Complications none Disposition Accompanied Patient To Recovery: Yes Disposition: Recovery Room
--- NOTE | 2019-12-03 19:54 | Anesthesiology Progress Note ---
Date of Service December 03, 2019 Anesthesia Post Procedure Vital Signs Vital Signs: Temp Pulse Pulse Resp BP Pulse Ox 12/03/19 19:45 97.9 F 106 H 17 148/85 H 94 12/03/19 19:35 109 H 10 L 130/76 91 12/03/19 19:26 97.3 F L 109 H 24 136/79 94 12/03/19 14:16 98.4 F 95 H 95 H 18 159/85 H 95 12/03/19 14:02 98.1 F 86 16 149/84 H 95 12/03/19 07:06 97.9 F 75 16 149/85 H 97 12/02/19 23:55 97.9 F 77 15 138/85 94 Pain Intensity Left Lower Leg: Pain Intensity: 0 Transfer of Care Handoff Completed per policy Notes Mental Status: alert / awake / arousable and participated in evaluation Patient Amnestic to Procedure: Yes Nausea / Vomiting: adequately controlled Pain: adequately controlled Airway Patency, RR, SpO2: stable & adequate BP & HR: stable & adequate Hydration State: stable & adequate Anesthetic Complications: no major complications apparent and Pt Satisfied with anesthetic care
[2019-12-03] MEDS ORDERED: bisacodyL 10 MG SUPP PR PRN (20:05)
[2019-12-03] MEDS ORDERED: SODIUM CHLORIDE 0.9% 1000ML 1,000 ML IV SCH (20:05)
[2019-12-03] MEDS ORDERED: METOCLOPRAMIDE HCL INJ 5 MG/ML 2 ML VIAL IV PRN (20:05)
[2019-12-03] MEDS ORDERED: NO NSAIDS SCH (20:05)
[2019-12-03] MEDS ORDERED: HYDROmorphone INJ 0.5 MG/0.5 ML SYR IV PRN (20:05)
[2019-12-03] MEDS ORDERED: MAGNESIUM HYDROXIDE SUSP 30 ML UDC PO PRN (20:05)
[2019-12-03] MEDS ORDERED: NALOXONE HCL 0.4 MG/1 ML VIAL/CARP IV PRN (20:05)
[2019-12-03] MEDS: ASPIRIN 81 MG ECTAB PO SCH (21:31)
[2019-12-03] MEDS: DOCUSATE SODIUM 100 MG CAP PO SCH (21:31)
[2019-12-03] MEDS: SENNA 8.6 MG TAB PO SCH (21:31)
[2019-12-03] MEDS: CEFAZOLIN 2000MG 2,000 MG/15 ML SYR IV SCH (21:32)
--- NOTE | 2019-12-04 00:23 | Operative Report (OR) ---
DATE OF OPERATION: 12/03/2019 PREOPERATIVE DIAGNOSES: 1. Left closed tibial pilon fracture. 2. Complex segmental tibial shaft fracture. 3. Medial malleolus fracture. 4. Left comminuted segmental displaced fibula fracture. POSTOPERATIVE DIAGNOSES: 1. Left closed tibial pilon fracture. 2. Complex segmental tibial shaft fracture. 3. Medial malleolus fracture. 4. Left comminuted segmental displaced fibula fracture. PROCEDURES: 1. Left open reduction and internal fixation complex tibial pilon fracture. 2. Open reduction internal fixation displaced comminuted tibial shaft segmental fracture. 3. Open reduction and internal fixation, comminuted segmental fibula fracture. SURGEON: Margarito Mancilla DO LAB[employer]ER [employer]: Dagoberto Carbajal PA-C who was present for patient positioning, sterile prep and drape, management of retractors and instruments. He was present through the critical portions of the case including wound closure, application of sterile dressing and transport of the patient to recovery. ANESTHESIA: General regional. SPECIMENS: None. DRAINS: None. COMPLICATIONS: None. BLOOD LOSS: 35 mL. PERTINENT HISTORY: This is a 69-year-old female who sustained a sudden twisting injury on level ground; however, unfortunately the rotational motion and presumably osteopenic bone produced a complex fracture pattern involving the shaft of the tibia, the tibial pilon, the medial malleolus of the tibia as well as a segmental fracture of the fibula. The patient was unable to ambulate. She was transported to [facility]. She was evaluated. Radiographs and CT scans were obtained. She was initially seen by my partner and due to fracture complexity the case was then presented to me for definitive management. After medical stabilization and monitoring for soft tissue swelling with judicious consistent use of ice and elevation, the patient was then scheduled for surgery as indicated. All potential risks, benefits, complications, alternatives, rehab, potential for incomplete relief of symptoms, need for further surgery, DVT, PE, , persistent pain, swelling, scarring, weakness, neurovascular injury, wound complications, hardware failure, nonunion, malunion, bone fracture were discussed with the patient, the patient decided to proceed with the procedure as indicated. DESCRIPTION OF PROCEDURE: The patient received a popliteal and adductor canal nerve blocks to the left lower extremity. She was then taken to the operative suite, placed supine on the operating room table. After review of consent and identification of proper operative site, the patient was anesthetized, LMA was placed. A tourniquet was applied high on left thigh over cast padding. Left lower extremity was then sterilely prepped and draped in usual fashion, elevated and exsanguinated with an Esmarch bandage, tourniquet inflated to 350 mmHg after surgical timeout was performed. Next, a 15 blade scalpel was used to make an elongated incision over the left distal fibula extending proximally into the midshaft. The incision was deepened through subcutaneous tissue. Meticulous hemostasis was achieved with electrocautery. Full thickness skin flaps were developed. Sensory cutaneous nerves were retracted and protected with Haris rakes and careful dissection was performed with Metzenbaum scissors. Next, the fibula fracture was clearly identified and noted to be periosteal tear. A 15 blade scalpel was used to incise the periosteum. Care was taken to retract and protect the peroneal tendons and peroneal musculature. After dissection of the fracture to expose both the fracture and the primary fracture was noted to be multiple comminuted segments extending distally all the way to the level of the distal fibula. There is displacement and malalignment. Next, it was copiously irrigated with sterile normal saline until clear. The fracture fragment was then manipulated into alignment using gentle traction and multiple bone clamps under live fluoroscopic assistance. Once this was completed, a long fibular periarticular plate was then placed over the lateral aspect of the fibula provisionally held in place with multiple guide pins under live fluoroscopic assistance. Next, the plate was fixed distally with multiple locking screws and then this was then used to reduce the fracture fragments more proximally and the segmental aspect of the fibula was then held in place with bone forceps. Multiple locking screws were placed proximally to stabilize the lateral column of the ankle and lower extremity. Next, a single lag screw was placed from anterior to posterior using 3.5 mm nonlocking screw. Once the fracture fragments were then anatomically stabilized and fixated, attention then directed toward the medial tibia. The 15 blade scalpel was used to make an incision over the medial distal medial malleolus. A 15 blade scalpel incision was then deepened through subcutaneous tissue. Meticulous hemostasis was achieved with electrocautery. Care was taken to have a minimal incision over the medial malleolus. Careful dissection was performed with Metzenbaum scissors and forceps down to the level of the saphenous vein, it was then carefully retracted with a house retractor. Next, a [place] elevator was then used to elevate periosteum along the shaft of the distal fragments and then used to bridge on to the proximal fragment of the primary tibial shaft fracture. Next, the medial periarticular tibial plate was then slid subperiosteally on the left medial anterior aspect of the distal tibia crossing the fracture site proximally. Still noted to be significant malalignment and an incision was made proximally and the proximal aspect of the plate was then stabilized in the mid shaft of the anteromedial tibia with a guide pin under live fluoroscopic assistance. This captured the appropriate length and stabilized the plate within the mid plane of the tibia. Next, using gentle traction on the lower extremity using manual palpation, the plate was then fixed distally to stabilize the plate directly over the medial malleolus to stabilize the distal medial malleolar fracture fragment while ensuring alignment and position of the plate to avoid skin impingement. Next, the minimally invasive surgical guide was then fixed to the plate and a nonlocking screw was placed percutaneously at the distal shaft fracture after using another percutaneous incision at the level of the fracture with placement of a Cardozo retractor under the fracture to elevate it and stabilize the fracture in near anatomic position. Once this was stabilized, the nonlocking screw was then placed into the plate and used as a lever to reduce the fracture into near anatomic position and alignment under live fluoroscopic assistance. Once this was completed, multiple percutaneous locking screws were placed proximal and distal to the major fracture line at the distal tibial shaft and then multiple screws were placed through the medial malleolar fracture fragment distally to stabilize the entirety of the tibia and near anatomic alignment, position and fixation. Next, the percutaneous alignment guide was then removed. All the incisions were then copiously irrigated with sterile normal saline and then using fluoroscopy 2 percutaneous 4-0 cannulated screws were placed from anterior to posterior to capture the posterior malleolar fragment stabilized and compressed it to stabilize the articular surface of the distal tibial pilon fracture. Once this was completed, anatomic alignment and fixation was performed of all fractures mentioned previously. Next, the deep periosteum and muscular tissue was then closed over the lateral plate using 2-0 Vicryl sutures. A 3-0 Vicryl suture was used to close the dermis both medially and laterally and then nylon was used to close all skin incisions with combination of running and horizontal mattress sutures. After final radiographs were obtained a sterile compressive dressing was applied overwrapped with a bulky Donaldo Jett plaster splint placed in neutral dorsiflexion. The tourniquet was released, the toes noted to pink and warm. The patient was awakened and taken to recovery in stable condition. I attest to the content of the Intraoperative Record and any orders documented therein. Any exception s are noted below.
[2019-12-04] MEDS: LEVOTHYROXINE SODIUM 50 MCG TABLET PO SCH (05:40)
[2019-12-04] MEDS: CEFAZOLIN 2000MG 2,000 MG/15 ML SYR IV SCH (05:40)
[2019-12-04] MEDS: OXYCODONE HCL IR 5 MG TAB (IMMEDIATE RELEASE) PO PRN ×5 (06:40→23:32)
[2019-12-04] MEDS: MULTIVITAMIN TAB PO SCH (07:38)
[2019-12-04] MEDS: DOCUSATE SODIUM 100 MG CAP PO SCH ×2 (07:39→20:20)
[2019-12-04] MEDS: ASPIRIN 81 MG ECTAB PO SCH ×2 (07:39→20:20)
--- NOTE | 2019-12-04 07:41 | Anesthesiology Progress Note ---
Date of Service December 04, 2019 Anesthesia Post Procedure Vital Signs Vital Signs: Temp Pulse Pulse Resp BP Pulse Ox 12/04/19 07:11 36.8 C 87 16 131/63 95 12/04/19 04:08 36.6 C 87 16 106/67 93 12/03/19 23:43 36.2 C L 91 H 15 124/76 99 12/03/19 22:15 36.4 C L 79 17 139/83 95 12/03/19 21:14 36.7 C 84 17 138/75 91 12/03/19 20:41 36.5 C 92 H 17 135/80 91 12/03/19 20:05 36.6 C 101 H 16 138/81 95 12/03/19 19:45 36.6 C 106 H 17 148/85 H 94 12/03/19 19:35 109 H 10 L 130/76 91 12/03/19 19:26 36.3 C L 109 H 24 136/79 94 12/03/19 14:16 36.9 C 95 H 95 H 18 159/85 H 95 12/03/19 14:02 36.7 C 86 16 149/84 H 95 Pain Intensity Left Lower Leg: Pain Intensity: 8 Notes Mental Status: alert / awake / arousable Nausea / Vomiting: adequately controlled Pain: adequately controlled Airway Patency, RR, SpO2: stable & adequate BP & HR: stable & adequate Hydration State: stable & adequate Anesthetic Complications: no major complications apparent and Pt Satisfied with anesthetic care
[2019-12-04 07:58] LABS: Hematocrit (blood only) 38.6 % (37-47); Hemoglobin 12.6 g/dL (12.0-16.0); Mean Corpuscular Hemoglobin 28.4 pg (25-34); Mean Corpuscular Hgb Conc 32.6 g/dL (32-36); Mean Corpuscular Volume 87.1 fL (80-100); Mean Platelet Volume 9.8 fL (7.4-10.4); Platelet Count 258 K/uL (130-400); RDW Coefficient of Variation 12.6 % (11.5-14.5); RDW Standard Deviation 40.5 fL (36.4-46.3); Red Blood Count 4.43 M/uL (4.2-5.4); White Blood Count 14.03 K/uL (4.8-10.8)
--- NOTE | 2019-12-04 09:54 | Orthopedic Progress Note ---
Date of Service December 04, 2019 Assessment & Plan (1) Closed fracture of left tibial plafond with fibula involvement: Postop day 1 status post ORIF left midshaft tibia with extension to the distal tibia pilon and medial malleolus. Comminuted left lateral malleolus. PT/OT protocols. Nonweightbearing on the affected extremity. Continue icing and elevating as much as possible. Pain control -advised patient to take 2 tablets of the oxycodone every 4 hours at this point. Hydromorphone has been put to every 3 hours as needed. DC planning-plan for [facility] when pain control is adequate. Admission and Anticipated Discharge Date Admission Date: November 30, 2019 Anticipated date of discharge: 12/02/19 Subjective Postop day 1 status post ORIF of left distal fibular fracture and Pilon fracture Patient currently with complaints of pain this morning. States she received some pain medication this morning however it does not seem to be covering her pain. Upon further investigation, she had received only 1 tablet of oxycodone and had recently also a dose of hydromorphone. Discussed that she would likely need to have 2 tablets of the oxycodone initially during this early postoperative period to help with that. States that she has a little bit of nausea every once in a while which she attributes to the pain she was having. States that it does not seem to be when she is taking the pills. Denies any shortness of breath, chest pain, lightheadedness. Physical Exam Physical Exam: Splint is clean, dry, intact. Toes are mobile. Cap refills less than 2 seconds. She has some slight decrease sensation in the toes. Extremity is up on 2 pillows for elevation and she does have ice available. Results & Data ([facility]) Vital Signs (Past 12 Hours) Vital Signs Temp Pulse Resp BP Pulse Ox 12/04/19 07:11 36.8 C 87 16 131/63 95 12/04/19 04:08 36.6 C 87 16 106/67 93 12/03/19 23:43 36.2 C L 91 H 15 124/76 99 12/03/19 22:15 36.4 C L 79 17 139/83 95
[2019-12-04] MEDS: ACETAMINOPHEN 500 MG TAB PO SCH ×3 (10:08→21:56)
[2019-12-04] MEDS: HYDROmorphone INJ 0.5 MG/0.5 ML SYR IV PRN ×4 (10:08→21:14)
--- NOTE | 2019-12-04 17:41 | Hospitalist Progress Note ---
Date of Service December 04, 2019 Assessment & Plan (1) Closed fracture of left tibial plafond with fibula involvement: Status post post ORIF left midshaft tibia with extension to the distal tibia pilon and medial malleolus. Comminuted left lateral malleolus on 12/02 Acetaminophen 1000 mg p.o. every 8 hours Parenteral pain control and offering oral oxycodone escalating doses of oxycodone to try to help control her pain Activity is nonweightbearing left lower extremityplans for rehab referral (2) Hypothyroidism: Remains on levothyroxine 50 mcg daily (3) Osteoporosis: Continues on calcium and vitamin D (4) Vitamin D deficiency: Continue vitamin D (5) Impaired fasting glucose: Random glucose 138 upon admission, would not pursue routine testing. (6) Abnormal CT scan: Patient with multiple small nodules on her CT scan will need CT scan follow-up of her chest will enroll in the lung nodule program Admission and Anticipated Discharge Date Admission Date: November 30, 2019 Subjective Patient is having some challenges with pain control at this time orthopedics wishes to keep her here for another day while we have modulate her pain medication and eventually have her transferred to rehab facility Review of Systems Review of Systems: Mild distress and fatigue no headache, blurry or double vision no speech or swallowing issues no chest pain, pressure or palpitations no shortness of breath, cough or wheezes no abdominal pain, nausea or vomiting, diarrhea or constipation no dysuria, hematuria or frequency Significant left lower extremity pain and some mild distal swelling no back pain, CVA tenderness or radicular pain no bruising, bleeding or rashes no focal signs of weakness or numbness or altered sensation no complaints or anxiety or depression Physical Exam Physical Exam: The patient appeared well nourished and normally developed. Vital signs as documented. Head exam is normocephalic atraumatic no scleral icterus Neck is without JVD, thyromegaly, or carotid bruits. Lungs are clear to auscultation, no focal loss of breath sounds Cardiac exam, Rhythm is regular.. No murmurs, rubs or gallops. Abdominal exam reveals normal bowel sounds, soft non tender, no masses Extremities she has moderate swelling to her toes with good capillary refill and sensations intact splinting is in place Neurologic exam is alert and oriented, no focal loss of strength or sensation Skin is without bruises or rashes Psychologically is without concerns for anxiety or depression Results & Data Results & Data ([facility]) Vital Signs (Past 12 Hours) Vital Signs Temp Pulse Resp BP Pulse Ox 12/04/19 15:06 97.5 F L 76 18 126/81 97 12/04/19 11:00 97.9 F 70 16 133/78 95 12/04/19 07:11 98.2 F 87 16 131/63 95 PG Care Time/CCT Total # of Minutes Spent Total Time Spent with Patient: Total time spent is greater than 50% in coordination of care (as documented) at patient's floor/unit and/or counseling patient: Coding Level of Care Code 12781 Subseq Hosp Care Lvl 2 Diagnoses Closed fracture of left tibial plafond with fibula involvement S82.872A; S82.832A Hypothyroidism E03.9 Osteoporosis M81.0 Vitamin D deficiency E55.9 Impaired fasting glucose R73.[address] scan R93.89
[2019-12-04] MEDS: SENNA 8.6 MG TAB PO SCH (20:20)
[2019-12-05] MEDS: HYDROmorphone INJ 0.5 MG/0.5 ML SYR IV PRN (01:32)
[2019-12-05] MEDS: OXYCODONE HCL IR 5 MG TAB (IMMEDIATE RELEASE) PO PRN ×3 (03:52→12:08)
[2019-12-05] MEDS: ACETAMINOPHEN 500 MG TAB PO SCH (05:28)
[2019-12-05] MEDS: LEVOTHYROXINE SODIUM 50 MCG TABLET PO SCH (05:28)
--- NOTE | 2019-12-05 07:42 | Orthopedic Progress Note ---
Date of Service December 05, 2019 Assessment & Plan (1) Closed fracture of left tibial plafond with fibula involvement: Postop day 2 status post ORIF left midshaft tibia with extension to the distal tibia pilon and medial malleolus. Comminuted left lateral malleolus. PT/OT protocols. Nonweightbearing on the affected extremity. Continue icing and elevating as much as possible. Pain control -better today. Acquire likely 2 tablets of oxycodone every 4 hours as needed initially. I will add low-dose Ativan as needed for muscle spasms. DC planning-plan for [facility]. [place] for orthopedics for patient to be transferred to [facility]. Instructions placed in the discharge section of the EMR. Admission and Anticipated Discharge Date Admission Date: November 30, 2019 Anticipated date of discharge: 12/02/19 Subjective Patient sitting up in bed this morning. She is awake and alert. Dates that her pain control is better than it was yesterday. Still having pain which she understands will be the norm for her for the next few days. States she is having muscle spasms off and on that are the biggest culprit of the pain. Denies any shortness of breath, chest pain, lightheadedness. No other complaints this morning. Physical Exam Physical Exam: Splint is clean, dry, and intact. Toes are mobile. Sensation is intact. Cap refill is less than 2 seconds. Results & Data ([facility]) Vital Signs (Past 12 Hours) Vital Signs Temp Pulse Resp BP Pulse Ox 12/04/19 22:58 36.5 C 77 16 145/76 H 94
[2019-12-05] MEDS: ASPIRIN 81 MG ECTAB PO SCH (07:43)
[2019-12-05] MEDS: DOCUSATE SODIUM 100 MG CAP PO SCH (07:43)
[2019-12-05] MEDS: MULTIVITAMIN TAB PO SCH (07:43)
[2019-12-05] MEDS ORDERED: LORazepam 0.5 MG TAB PO PRN (12:22)
--- NOTE | 2019-12-05 18:50 | Discharge Summary ---
Date of Service December 05, 2019 Admission HPI Per Admitting Provider The patient is a 69-year-old female with a past medical history of hypothyroidism, vitamin D deficiency, osteoporosis, impaired fasting glucose, dyslipidemia, HPV infection, uterine prolapse and severe cervical dysplasia. She reports that she was outside searching for her cat, and does not remember the exact sequence, but remembers twisting her ankle and hearing a cracking sound and then the development of severe pain and inability to bear weight. In the emergency department, patient was found to have a distal left tib-fib fracture, and was felt to not be able to return home with a splint, and was referred for admission to the medical service for orthopedic assessment in the a.m.. Principal Diagnosis left distal tib fib fracture, s/p or repair with Dr Mancilla Discharge Exam The patient appeared well Vital signs as documented. Lungs are clear to auscultation and appear unlabored Cardiac exam, Rhythm is regular.. No murmurs, rubs or gallops. Abdominal exam reveals normal bowel sounds, soft non tender, no masses Extremities splinted and with some pain control Neurologic exam is alert and oriented, no focal loss of strength or sensation Skin is without bruises or rashes Psychologically is without concerns for anxiety or depression Discharge Data Allergies Allergy/AdvReac Type Severity Reaction Status Date / Time bee venom protein (honey bee) Allergy Intermediate SWELLING Verified 11/30/19 16:31 Penicillins Allergy Mild UNKNOWN - Verified 11/30/19 16:31 TOLD TO NOT HAVE A CHILD house dust AdvReac Mild Congested Verified 11/30/19 16:30 Consultations 11/30/19 01:17 Consult Orthopedic Surgery Stat ED Decision to Admit Stat 11/30/19 02:46 Consult Case Management - Discharge Planning Routine Consult Orthopedic Surgery Routine 12/01/19 17:36 Consult Lung Nodule Program Routine 12/03/19 20:05 Consult Case Management - Discharge Planning Routine Procedures Performed Operation Date: 12/03/19 07:00 Actual Procedures p Left open reduction, internal fixation, complex tibia pilon and tibial shaft segmented fracture, open reduction internal fixation fibula fracture(Left) - Margarito Mancilla, Ordered Studies 11/29/19 23:58 CT tib/fib LT wo con Stat 12/03/19 07:00 FL fluoroscopy <1hr Routine FL tibia/fibula LT 2V Routine 12/03/19 14:43 US - OR guided needle placemen Routine Hospital Course (1) Closed fracture of left tibial plafond with fibula involvement: Status post post ORIF left midshaft tibia with extension to the distal tibia pilon and medial malleolus. Comminuted left lateral malleolus on 12/02 Acetaminophen 1000 mg p.o. every 8 hours oral oxycodone escalating doses of oxycodone to try to help control her pain Activity is nonweightbearing left lower extremityplans for rehab referral (2) Hypothyroidism: Remains on levothyroxine 50 mcg daily (3) Osteoporosis: Continues on calcium and vitamin D (4) Vitamin D deficiency: Continue vitamin D (5) Impaired fasting glucose: Random glucose 138 upon admission, would not pursue routine testing. (6) Abnormal CT scan: Patient with multiple small nodules on her cxr scan will need CT scan follow-up of her chest will enroll in the lung nodule program Total Time Total Time Spent Total Time Spent (In Minutes): It required greater than 30 minutes to prepare this patient for discharge Discharge Plan Discharge Items Patient Disposition: Transfer Inpatient Rehab Fac Reason For Visit: DISTAL LEFT TIB / FIB FRACTURE Discharge Diagnosis: Distal Left Tib/Fib Fracture Activity: Per Instructions section Weightbearing: Left non-weightbearing Non-emergency contact: Surgeon Call non-emergency contact if: your pain is not controlled, your temperature is above 101.5, your wound has increased redness and your wound has increased drainage Follow-up/Referrals: Emelia Ferris MD [Primary Care Provider] - Margarito Mancilla DO [Surgeon] - (Follow up with Dr Mancilla in 10-14 days. ) Diet: Regular Addtl Attending Provider Instructions: please be sure to follow up with primary care once discharged Addtl Photography Editor Provider Instructions: Non weightbearing Left lower extremity with crutches or walker. Keep the leg elevated on 2 or 3 pillows when at rest. Ice to the ankle regularly for the 1st 72 hours, then as needed. PT/OT - gait training as needed Follow up with Dr. Mancilla in 10-14 days for wound check. Please call for an appointment. [phone] Pending Studies at Discharge: No Stand-Alone Forms: My [employer] Skilled Items Patient informed of condition?: Yes DNR: No Discharge Level of Care: Acute rehab Communicable Disease: No Discharge Prognosis: Improving Lines: None Urinary Catheter: No Medications and DC Order Prescriptions: New aspirin 81 mg Tablet,Delayed Release (Dr/Ec) 81 mg PO Q12H Qty: 60 RF: 0 acetaminophen 500 mg Tablet 1,000 mg PO Q8 Qty: 90 RF: 0 oxycodone 5 mg Tablet 5 - 10 mg PO Q4H PRN (Reason: pain) Qty: 30 RF: 0 lorazepam 0.5 mg tablet 0.5 mg PO Q8H PRN (Reason: muscle spasm) 2 Days Qty: 6 RF: 0 Continued levothyroxine [Synthroid] 50 mcg tablet 50 mcg PO QAM Qty: 90 RF: 3 multivitamin Tablet 1 tab PO QAM RF: 0 ascorbic acid (vitamin C) [Vitamin C] 1,000 mg Tablet 2,000 g PO DAILY RF: 0 calcium carbonate [Calcium 600] 600 mg calcium (1,500 mg) Tablet 600 mg PO DAILY RF: 0 cholecalciferol (vitamin D3) [Vitamin D3] 1,000 unit Tablet 1,000 unit PO QAM RF: 0 melatonin 5 mg Tablet 5 mg PO HS PRN (Reason: Insomnia) RF: 0 Discharge Orders: Discharge Order (Routine); Ordered 12/05/19 Ordered By: Mgiuel A Montgomery Admission Data Admit Date/Time: 11/30/19 02:00 Attending Provider: Miguel A Montgomery Admit Provider: Kevin Chilel Primary Care Provider: Emelia Ferris Other Providers: Nikko Andres ; [facility] ; Kevin Chilel Other Interventions: Discharge Summary Assessment (RN) Last Done: 12/05/19 12:58 DC Date/Time DO NOT enter until pt leaves facility: 12/05/19 13:44 Coding Level of Care Code D/C Day Management >30 mins Diagnoses Closed fracture of left tibial plafond with fibula involvement S82.872A; S82.832A Hypothyroidism E03.9 Osteoporosis M81.0 Vitamin D deficiency E55.9 Impaired fasting glucose R73.[address] scan R93.89
--- NOTE | 2019-12-10 08:17 | Coding Query ---
To promote full compliance with coding requirements relating to patient care, physician participation is requested in all cases of environmental compliance specialist uncertainty. Please assist us with the question(s) below: Coding Question(s): It was noted throughout the record that the patient has/is suspected to have osteoporosis. According to coding guidelines "a code for osteoporotic fracture, and not a traumatic fracture, should be used for any patient with known osteoporosis who suffers a fracture, even if the patient had a minor fall or trauma, if that fall or trauma would not usually break a normal, healthy bone." Please indicate below the type of fracture: Physician's Response(s): ( ) Osteoporotic fracture of Left Tibia and Fibula ( xxx ) Traumatic fracture of Left Tibia and Fibula ( ) Other, please specify ( ) Unable to be determined MTDD
== END 2019-12-05 13:44 | DRG 494 ==
LOC: ED 23:09 → SUATTDRO 11-30 02:00 → 3E 11-30 02:00